=== PATIENT | male | born 1965 | race Caucasian/White ===

== ENCOUNTER 2017-07-26 05:11 | Emergency (ER) | payer MEDICAID, SELFPAY ==
[2017-07-26 05:15] VITALS: BP 155/108; PULSE 90; RESP 16; TEMP 36.8; O2SAT 97; BMI 25.8
--- NOTE | 2017-07-26 05:25 | XR_ITS ---
XR chest 2V INDICATION: Cough COMPARISON: PA and lateral chest 06/11/2015 FINDINGS: The cardiovascular structures are unremarkable. No mediastinal shift or hilar mass is evident. The lungs are well expanded and clear bilaterally. The costophrenic sulci are sharp. No significant bony anomalies are apparent. IMPRESSION: Negative chest.
[2017-07-26 06:02] VITALS: PULSE 90; PULSE 91
[2017-07-26 06:10] LABS: Basophils # 0.1 K/mm3 (0-0.2); Eosinophils # 0.9 K/mm3 (0.0-0.4); Lymphocytes % 27.4 K/mm3 (10-50); Mean Corpuscular HGB Conc 35.6 g/dL (31.8-35.4); Mean Corpuscular Hemoglobin 30.5 pg (27.0-31.2); Mean Corpuscular Volume 85.7 fl (80-94); Monocytes # 0.5 K/mm3 (0.1-1.0); Monocytes % 6.9 % (1.7-9.3); Neutrophils # 3.8 K/mm3 (1.8-7.8); Neutrophils % 52.7 % (37.0-80.0); Platelet Count 190 K/mm3 (142-424); Red Blood Count 5.25 M/mm3 (4.60-6.20); Red Cell Distribution Width 13.7 % (11.5-17.5); White Blood Count 7.1 K/mm3 (4.8-10.8)
[2017-07-26 06:12] VITALS: BP 132/87; PULSE 97; O2SAT 96
[2017-07-26 06:17] VITALS: BP 137/94; PULSE 80; RESP 16; O2SAT 98
[2017-07-26 06:18] LABS: Strep Scrn Group A (Rapid) Negative (Negative)
[2017-07-26 06:23] LABS: Lactic Acid 0.9 mmol/L (0.4-2.0)
[2017-07-26 06:29] LABS: Anion Gap 11.7 mEq/L (5-15); Blood Urea Nitrogen 15 mg/dL (7-18); CKMB Relative Index 0.8 U/L (0-4.0); Carbon Dioxide 29 mmol/L (21.0-32.0); Chloride 105 mmol/L (98-107); Creatine Kinase 502 U/L (39-308); Creatine Kinase MB 4.1 mg/ml (0.0-3.6); Creatinine Clearance Estimated 85 mL/min (0-300); Creatinine,Serum 1.14 mg/dL (0.70-1.30); Estimated Glomerular Filt Rate 68 ml/min (>60); GFR (African American) 82 ML/MIN (>60); Glucose 94 mg/dL (74-106); Potassium 3.7 mmoL/L (3.5-5.1); Sodium 142 mmol/L (136-145); Troponin I < 0.02 ng/ml (0.00-0.06)
[2017-07-26 06:30] VITALS: BP 127/98; PULSE 70
--- NOTE | 2017-07-26 06:55 | HMH.EDGENADL ---
ED Disposition Clinical Impression: Bronchospasm with bronchitis, acute Disposition: Home, Self-Care Condition on Discharge: Good Instructions: DI for Acute Bronchitis Additional Instructions: Use inhaler 2 puffs every 4 hours as needed for wheezing and shortness of breath. Tessalon Perles for cough. Prednisone for 5 days. Additional instructions for ACUTE BRONCHITIS: Use Tylenol or Ibuprofen for pain or fever. Rest and plenty of fluids. Return immediately if you have an uncontrollable fever greater than 102 degrees, severe headache or neck stiffness, difficulty breathing or shortness of breath, persistent vomiting, severe sore throat or inability to swallow. See your physician if not improving in 4-5 days. Prescriptions: Benzonatate [Tessalon Perle 100mg Cap] 100 mg PO TIDP PRN #20 cap PRN Reason: Cough predniSONE [Prednisone 20mg Tab] 20 mg PO BID #10 tab Referrals: Alice Salguero APRN [Primary Care Provider] - - Critical Care Critical Care Time: No Attestation: On 07/26/17, the high probability of a clinically significant, sudden or life threatening deterioration of the following system(s) required my full and direct attention, intervention and personal management. The time I documented below is in addition to time spent performing reported procedures but includes the following listed in this critical care notation. Medical Decision Making - [place] Inquiry Pt receiving controlled substance: No Vital Signs: 07/26/17 05:15 07/26/17 06:12 07/26/17 06:17 Temperature 98.3 F Temperature Source Temporal Artery Scan Pulse Rate [Right Radial] 90 97 H 80 Respiratory Rate 16 16 Blood Pressure [Right Arm] 155/108 132/87 137/94 Blood Pressure Mean [Right Arm] 123 102 108 Blood Pressure Source [Right Arm] Automatic Cuff Automatic Cuff Automatic Cuff Blood Pressure Position [Right Arm] Sitting Supine Sitting 02 Sat by Pulse Oximetry 97 96 98 Oxygen Delivery Method Room Air Room Air Room Air 07/26/17 06:30 Temperature Temperature Source Pulse Rate [Right Radial] 70 Respiratory Rate Blood Pressure [Right Arm] 127/98 Blood Pressure Mean [Right Arm] 107 Blood Pressure Source [Right Arm] Automatic Cuff Blood Pressure Position [Right Arm] Supine 02 Sat by Pulse Oximetry Oxygen Delivery Method - Lab Data Lab results reviewed: Yes: I reviewed the patient's lab results. Lab Results 07/26/17 05:30: WBC 7.1, RBC 5.25, Hgb 16.0, Hct 45.0, MCV 85.7, MCH 30.5, MCHC 35.6 H, RDW 13.7, Plt Count 190, MPV 8.0, Neut % (Auto) 52.7, Lymph % (Auto) 27.4, [place] % (Auto) 6.9, Eos % (Auto) 12.0, Baso % (Auto) 1.0, Neut # (Auto) 3.8, Lymph # (Auto) 2.0, [place] # (Auto) 0.5, Eos # (Auto) 0.9 H, Baso # (Auto) 0.1 07/26/17 05:30: Sodium 142, Potassium 3.7, Chloride 105, Carbon Dioxide 29, Anion Gap 11.7, BUN 15, Creatinine 1.14, Estimated Creat Clear 85, Estimated GFR 68, Est GFR ( Amer) 82, Glucose 94, Total Creatine Kinase 502 H*, CK-MB (CK-2) 4.1 H, CK-MB (CK-2) Rel Index 0.8, Troponin I < 0.02 07/26/17 05:30: Lactic Acid 0.9 07/26/17 05:30: Influenza Type A Ag Negative, Influenza Type B Ag Negative, Group A Strep Rapid Negative Total CPK elevated, patient has been chopping wood past couple of days. Result diagrams: 07/26/17 05:30 07/26/17 05:30 Orders (Tests/Meds): ED MEDICATIONS Discontinued Medications Generic Name Dose Route Start Last Admin Trade Name Freq PRN Reason Stop Dose Admin Albuterol/Ipratropium 3 ml 07/26/17 05:43 Duoneb 3ml Neb 07/26/17 05:44 ONCE ONE Albuterol/Ipratropium 2 puff 07/26/17 06:55 07/26/17 07:06 Combivent Respimat 20mcg/100mcg Inhaler 07/26/17 06:56 2 act ONCE ONE Administration Sodium Chloride 1,000 mls @ 999 mls/hr 07/26/17 05:45 07/26/17 05:39 Sod Chlor 0.9% 1000ml Bag IV 07/26/17 06:45 999 mls/hr .Q1H1M LEAH Administration Methylprednisolone Sodium Succinate 125 mg 07/26/17 06:55 07/26/17 07:06 Tasha
--- NOTE | 2017-07-26 06:58 | ED_ITS ---
ED Disposition Clinical Impression: Bronchospasm with bronchitis, acute Disposition: Home, Self-Care Condition on Discharge: Good Instructions: DI for Acute Bronchitis Additional Instructions: Use inhaler 2 puffs every 4 hours as needed for wheezing and shortness of breath. Tessalon Perles for cough. Prednisone for 5 days. Additional instructions for ACUTE BRONCHITIS: Use Tylenol or Ibuprofen for pain or fever. Rest and plenty of fluids. Return immediately if you have an uncontrollable fever greater than 102 degrees, severe headache or neck stiffness, difficulty breathing or shortness of breath, persistent vomiting, severe sore throat or inability to swallow. See your physician if not improving in 4-5 days. Prescriptions: Benzonatate [Tessalon Perle 100mg Cap] 100 mg PO TIDP PRN #20 cap PRN Reason: Cough predniSONE [Prednisone 20mg Tab] 20 mg PO BID #10 tab Referrals: Alice Salguero APRN [Primary Care Provider] - - Critical Care Critical Care Time: No Attestation: On 07/26/17, the high probability of a clinically significant, sudden or life threatening deterioration of the following system(s) required my full and direct attention, intervention and personal management. The time I documented below is in addition to time spent performing reported procedures but includes the following listed in this critical care notation. Medical Decision Making - [place] Inquiry Pt receiving controlled substance: No Vital Signs: 07/26/17 05:15 07/26/17 06:12 07/26/17 06:17 Temperature 98.3 F Temperature Source Temporal Artery Scan Pulse Rate [Right Radial] 90 97 H 80 Respiratory Rate 16 16 Blood Pressure [Right Arm] 155/108 132/87 137/94 Blood Pressure Mean [Right Arm] 123 102 108 Blood Pressure Source [Right Arm] Automatic Cuff Automatic Cuff Automatic Cuff Blood Pressure Position [Right Arm] Sitting Supine Sitting 02 Sat by Pulse Oximetry 97 96 98 Oxygen Delivery Method Room Air Room Air Room Air 07/26/17 06:30 Temperature Temperature Source Pulse Rate [Right Radial] 70 Respiratory Rate Blood Pressure [Right Arm] 127/98 Blood Pressure Mean [Right Arm] 107 Blood Pressure Source [Right Arm] Automatic Cuff Blood Pressure Position [Right Arm] Supine 02 Sat by Pulse Oximetry Oxygen Delivery Method - Lab Data Lab results reviewed: Yes: I reviewed the patient's lab results. Lab Results 07/26/17 05:30: WBC 7.1, RBC 5.25, Hgb 16.0, Hct 45.0, MCV 85.7, MCH 30.5, MCHC 35.6 H, RDW 13.7, Plt Count 190, MPV 8.0, Neut % (Auto) 52.7, Lymph % (Auto) 27.4, [place] % (Auto) 6.9, Eos % (Auto) 12.0, Baso % (Auto) 1.0, Neut # (Auto) 3.8 , Lymph # (Auto) 2.0, [place] # (Auto) 0.5, Eos # (Auto) 0.9 H, Baso # (Auto) 0.1 07/26/17 05:30: Sodium 142, Potassium 3.7, Chloride 105, Carbon Dioxide 29, Anion Gap 11.7, BUN 15, Creatinine 1.14, Estimated Creat Clear 85, Estimated GFR 68, Est GFR ( Amer) 82, Glucose 94, Total Creatine Kinase 502 H*, CK- MB (CK-2) 4.1 H, CK-MB (CK-2) Rel Index 0.8, Troponin I < 0.02 07/26/17 05:30: Lactic Acid 0.9 07/26/17 05:30: Influenza Type A Ag Negative, Influenza Type B Ag Negative, Group A Strep Rapid Negative Total CPK elevated, patient has been chopping wood past couple of days. Result diagrams: 07/26/17 05:30 07/26/17 05:30 Orders (Tests/Meds): ED MEDICATIONS Discontinued Medications
[2017-07-26 07:18] VITALS: BP 128/90; PULSE 88; RESP 16; TEMP 37; O2SAT 99
== END 2017-07-26 07:23 | disposition home or self-care (01) ==
PROVIDERS: Emergency Provider Emergency Medicine; Family Provider Nurse Practitioner Family; PCP Nurse Practitioner Family
DX: J20.9 Acute bronchitis, unspecified (principal); I10 Essential (primary) hypertension; Z88.0 Allergy status to penicillin
CPT/HCPCS: 71046; 80048; 82550; 82553; 83605; 84484; 85025; 87040; 87275; 87276; 87430; 93005; 96365; 96374; 99284

== ENCOUNTER → 2018-05-29 13:22 | Outpatient (CLI) | payer MEDICAID, SELFPAY ==
--- NOTE | 2018-05-29 13:32 | XR_ITS ---
XR chest 2V HISTORY: ITS.REASON: CHRONIC COUGH ORDERING PHYSICIAN: Alice Salguero PATIENT AGE: 52 years COMPARISON: PA and lateral chest 07/26/2017 FINDINGS: The cardiomediastinal silhouette and pulmonary vascularity are within normal limits. There are slightly increased bronchovascular markings in the lingula causing partial silhouetting of the left heart border. The remainder lung flower are clear. There is no pleural fluid. IMPRESSION: Findings suggesting a very minimal lingular pneumonia
== END ==
PROVIDERS: PCP Nurse Practitioner Family; Visit Provider Nurse Practitioner Family
DX: R05 Cough (principal)
CPT/HCPCS: 71046

== ENCOUNTER → 2018-06-21 13:35 | Outpatient (CLI) | payer MEDICAID, SELFPAY ==
--- NOTE | 2018-06-21 13:40 | XR_ITS ---
XR chest 2V HISTORY: ITS.REASON: BRONCHOPNEUMONIA ORDERING PHYSICIAN: Alice Salguero PATIENT AGE: 52 years COMPARISON: None FINDINGS: The cardiomediastinal silhouette and pulmonary vascularity are within normal limits. The lungs are clear without infiltrates, suspicious nodules, or pleural effusions. No acute bony abnormalities. IMPRESSION: Negative chest, no acute finding
== END ==
PROVIDERS: PCP Nurse Practitioner Family; Visit Provider Nurse Practitioner Family
DX: J18.0 Bronchopneumonia, unspecified organism (principal)
CPT/HCPCS: 71046

== ENCOUNTER → 2019-03-01 12:12 | Outpatient (CLI) | payer MEDICAID, SELFPAY ==
--- NOTE | 2019-03-01 12:26 | XR_ITS ---
PROCEDURE: XR THORACIC SPINE 3V CLINICAL INDICATION: THORACIC SPINE PAIN Pain between the shoulder blades COMPARISON: No exams were available for comparison FINDINGS: Minimal midthoracic curvature convex left. There is degenerative disc disease at C5-C6 and C6-C7. The thoracic spine has an otherwise unremarkable appearance. No fracture or dislocation. No lytic or blastic change. IMPRESSION: 1. Minimal degenerative disc disease C5-C6 and C6-C7. 2. Minimal midthoracic curvature convex left otherwise negative thoracic spine Dictated by: Jermey Julio MD 03/01/2019 17:14 Electronically signed by Jeremy Julio MD in [place] 03/01/2019 17:14
== END ==
PROVIDERS: PCP Nurse Practitioner; Visit Provider Nurse Practitioner
DX: M54.6 Pain in thoracic spine (principal)
CPT/HCPCS: 72072

== ENCOUNTER → 2019-05-25 13:38 | Outpatient (CLI) | payer MEDICAID, SELFPAY ==
--- NOTE | 2019-05-25 13:42 | XR_ITS ---
PROCEDURE: XR ACUTE ABDOMEN SERIES CLINICAL INDICATION: ABD PAIN COMPARISON: No exams were available for comparison FINDINGS: Frontal view the chest shows no acute finding. Upright and supine views of the abdomen are obtained. No intestinal obstruction or free air. There are multiple pelvic calcifications consistent with phleboliths. No acute bony anomalies. IMPRESSION: No acute findings. Dictated by: Jeremy Julio MD 05/25/2019 17:49 Electronically signed by Jeremy Julio MD in [place] 05/25/2019 17:49
== END ==
PROVIDERS: PCP Nurse Practitioner; Visit Provider Nurse Practitioner
DX: R10.84 Generalized abdominal pain (principal)
CPT/HCPCS: 74021

== ENCOUNTER → 2019-07-05 10:24 | Outpatient (CLI) | payer MEDICAID, SELFPAY ==
[2019-07-05 11:37] LABS: Blood Urea Nitrogen 11 mg/dl (9-20); Estimated Glomerular Filt Rate 64 ml/min (>60); GFR (African American) 77 ML/MIN (>60)
== END ==
PROVIDERS: Visit Provider Surgery
DX: Z01.818 Encounter for other preprocedural examination (principal)
CPT/HCPCS: 36415; 82565; 84520

== ENCOUNTER → 2019-07-12 09:21 | Outpatient (CLI) | payer MEDICAID, SELFPAY ==
--- NOTE | 2019-07-12 09:21 | CT_ITS ---
PROCEDURE: CT ABDOMEN PELVIS W CON CLINICAL INDICATION: diverticulitis Diverticulitis, abdominal pain and tenderness COMPARISON: No exams were available for comparison TECHNIQUE: IV Contrast: 75ML OPTIRAY 350 Oral Contrast Readi-Cat Axial images obtained with sagittal and coronal reformats. All CT scans at the facility use one or more dose reduction, viz: automated exposure control, ma/kV adjustment per patient size (including targeted exams where dose is matched to indication, i.e. head), or iterative reconstruction technique. FINDINGS: LOWER THORAX: No acute finding ABDOMEN & PELVIS: The liver, gallbladder, spleen, adrenal glands, and pancreas have an unremarkable appearance. No renal or ureteral calculi. No hydronephrosis. There has been a prior appendectomy. No intestinal obstruction or free air is evident. There is diverticulosis of the descending and sigmoid colon. No evidence of acute diverticulitis. There is mild thickening of the sigmoid colon which may be related to underlying muscular hypertrophy from the diverticulosis. No abscess or other significant anomaly evident. No acute bony anomalies. IMPRESSION: 1. Colonic diverticulosis. No evidence of acute diverticulitis. 2. Otherwise negative CT abdomen pelvis Dictated by: Jeremy Julio MD 07/13/2019 10:38 Electronically signed by Jeremy Julio MD in [place] 07/13/2019 10:38
== END ==
PROVIDERS: PCP Nurse Practitioner; Visit Provider Surgery
DX: K57.92 Diverticulitis of intestine, part unspecified, without perforation or abscess without bleeding (principal)
CPT/HCPCS: 74177; Q9967

== ENCOUNTER → 2020-01-14 18:25 | Outpatient (CLI) | payer MEDICAID, SELFPAY ==
[2020-01-16 15:43] LABS: Covid-19 Nasal PCR Sendout UK NOT DETECTED
== END ==
PROVIDERS: PCP Nurse Practitioner; Visit Provider Nurse Practitioner
DX: Z03.818 Encounter for observation for suspected exposure to other biological agents ruled out (principal)
CPT/HCPCS: U0003

== ENCOUNTER → 2020-02-03 09:04 | Outpatient (CLI) | payer MEDICAID, SELFPAY ==
[2020-02-03 18:17] LABS: Thyroid Stimulating Hormone 2.96 uIU/mL (0.465-4.68)
== END ==
PROVIDERS: Visit Provider Otolaryngology
DX: E01.0 Iodine-deficiency related diffuse (endemic) goiter (principal)
CPT/HCPCS: 36415; 84439; 84443

== ENCOUNTER → 2020-06-04 13:29 | Outpatient (CLI) | payer MEDICAID, SELFPAY ==
[2020-06-04 15:13] LABS: Basophils # 0.1 K/mm3 (0-0.2); Eosinophils # 0.6 K/mm3 (0.0-0.4); Eosinophils % 5.5 % (0.1-12.0); Hematocrit 52.3 % (42.0-52.0); Lymphocytes # 2.8 K/mm3 (0.7-4.5); Lymphocytes % 25.5 % (10-50); Mean Corpuscular HGB Conc 35.6 g/dL (31.8-35.4); Mean Corpuscular Hemoglobin 31.6 pg (27.0-31.2); Mean Corpuscular Volume 88.7 fl (80-94); Monocytes # 0.6 K/mm3 (0.1-1.0); Monocytes % 5.4 % (1.7-9.3); Neutrophils # 6.8 K/mm3 (1.8-7.8); Neutrophils % 62.5 % (37.0-80.0); Platelet Count 217 K/mm3 (142-424); Red Cell Distribution Width 14.1 % (11.5-17.5); White Blood Count 10.8 K/mm3 (4.8-10.8)
[2020-06-04 15:27] LABS: Hemoglobin 18.8 g/dL (14.1-18.0)
[2020-06-04 15:50] LABS: Chloride 101 mmol/L (98-107); Sodium 140 mmol/L (136-145)
[2020-06-04 15:52] LABS: Alanine Aminotransferase 35 U/L (12-78); Aspartate Amino Transferase 30 U/L (17-59); Blood Urea Nitrogen 12 mg/dl (9-20); Estimated Glomerular Filt Rate 70 ml/min (>60); GFR (African American) 85 ML/MIN (>60)
[2020-06-04 15:53] LABS: Albumin Level 5.4 g/dl (3.5-5.0); Albumin/Globulin Ratio 1.4 (1.1-1.8); Alkaline Phosphatase 69 U/L (38-126); Bilirubin,Total 0.7 mg/dl (0.2-1.3); Calcium 10.2 mg/dl (8.4-10.2); Carbon Dioxide 28 mmol/L (22.0-30.0); Chol/HDL Ratio 4.7 (1-3.5); Cholesterol 192 mg/dl (140-200); Globulin 3.8 g/dL (1.3-3.2); Glucose 100 mg/dl (74-100); HDL Cholesterol 41 mg/dl (40-60); Total Protein,Serum 9.2 g/dl (6.3-8.2); Triglycerides 351 mg/dl (30-150); VLDL Cholesterol 70 mg/dL (0-40)
[2020-06-04 16:05] LABS: Direct LDL Cholesterol 91.63 mg/dL (100-129)
[2020-06-04 20:20] LABS: Amphetamine/Metha Screen,Urine Negative ng/ml (<1000)
[2020-06-04 20:21] LABS: Barbiturates Screen,Urine Negative ng/ml (<200)
[2020-06-04 20:22] LABS: Benzodiazepines Screen,Urine Negative ng/ml (<200); Cannabinoid Screen,Urine Negative ng/ml (<50)
[2020-06-04 20:23] LABS: Cocaine Screen,Urine Negative ng/ml (<300)
[2020-06-04 20:24] LABS: Methadone Screen,Urine Negative ng/ml (<300); Opiate Screen,Urine Negative ng/ml (<300)
[2020-06-04 20:25] LABS: Phencyclidine Screen,Urine Negative ng/ml (<25)
== END ==
PROVIDERS: Visit Provider Emergency Medicine
DX: R53.83 Other fatigue (principal); Z79.899 Other long term (current) drug therapy
CPT/HCPCS: 80053; 80061; 80305; 85025

== ENCOUNTER → 2020-07-02 13:51 | Outpatient (CLI) | payer MEDICAID, SELFPAY ==
[2020-07-02 16:11] LABS: Amphetamine/Metha Screen,Urine Negative ng/ml (<1000)
[2020-07-02 16:12] LABS: Barbiturates Screen,Urine Negative ng/ml (<200)
[2020-07-02 16:13] LABS: Benzodiazepines Screen,Urine Negative ng/ml (<200)
[2020-07-02 16:14] LABS: Cannabinoid Screen,Urine Negative ng/ml (<50)
[2020-07-02 16:15] LABS: Cocaine Screen,Urine Negative ng/ml (<300)
[2020-07-02 16:16] LABS: Methadone Screen,Urine Negative ng/ml (<300); Opiate Screen,Urine Negative ng/ml (<300)
[2020-07-02 16:17] LABS: Phencyclidine Screen,Urine Negative ng/ml (<25)
== END ==
PROVIDERS: Emergency Medicine; Visit Provider Surgery
DX: Z79.899 Other long term (current) drug therapy (principal)
CPT/HCPCS: 80305

== ENCOUNTER → 2020-07-16 10:54 | Outpatient (CLI) | payer MEDICAID, SELFPAY ==
[2020-07-16 12:54] LABS: Coronavirus 19 IgG Antibody Negative (Negative); Coronavirus 19 IgM Antibody Negative (Negative)
== END ==
PROVIDERS: Visit Provider Surgery
DX: Z01.812 Encounter for preprocedural laboratory examination (principal)
CPT/HCPCS: 36415; 86328

== ENCOUNTER 2020-07-18 07:20 | Day surgery (SDC) | payer MEDICAID, SELFPAY ==
[2020-07-18 07:34] VITALS: BP 131/83; PULSE 78; RESP 18; TEMP 36.1; O2SAT 97; BMI 25.8
[2020-07-18 08:31] VITALS: O2SAT 97
--- NOTE | 2020-07-18 08:38 | HMH.ANESCL ---
[facility] Anesthesia Checklist - Patient Identification Patient Identification: Arm Band - Structural Data Admitted From: Home Planned Operative Procedure/s: colonoscopy Consent for Planned Operative Procedure(s) Verified: Yes Verified Documents: Surgical Consent, History and Physical - NPO Status Verified Time NPO: 00:00 - Additional verifications Anesthesia Reactions: No - Airway Assessment C-Spine Mobility Assessed: Yes (mp2) TMJ Mobility Assessed: Yes Dentition: Poor Dentition - Neurological Assessment Level of Consciousness: Awake, Alert - Anesthesia Plan Anesthesia Risk discussed: Yes Anesthesia Plan: Verified ASA Class: II Anesthesia Type: [facility] History I have reviewed the patient's past medical history: Yes Medical History: Reports:: Anxiety, Asthma, Hyperlipidemia, Hypertension Denies:: Cancer, Diabetes Mellitus Type 1, Diabetes Mellitus Type 2, Internal Pacemaker, MRSA, Seizures *Have you ever received a pneumonia vaccine?: No *Have you received a flu vaccine this season?: No Other Medical History: Reports: Thyroid Disease Anesthesia experience/problems:: nac Other Surgeries: Yes: Appendectomy, Colonoscopy, Other. No: Pacemaker Amputation: No Fractures: No - *Social History Smoking Status: Heavy tobacco smoker Tobacco Type: smokeless tobacco # Packs/Day (cigarettes): 1 Alcohol Intake: never Substance Use Type: denies use *Occupational Status:: employed Housing: house Household Members: significant other *Travel in the last 8 weeks: None - Psychiatric History Pschychiatric History:: Reports:: Anxiety Family Hx:: No significant family history
[2020-07-18 09:01] VITALS: BP 71/51; PULSE 67; RESP 16; TEMP 36.2; O2SAT 94
--- NOTE | 2020-07-18 09:02 | HMH.SCOPE ---
- Procedure: Date: 07/18/20 Patient Date of :: 1965 Procedure Performed:: Total colonoscopy to terminal ileum Indications:: Patient is a 54-year-old white male from [place] referred by Dr. Estevez for colonoscopy. I had performed colonoscopy on him in October 2016 and he had diverticulosis and a small sigmoid tubular adenoma. I had actually seen him in June 2019 as a referral from Hayley Eugene for diverticulitis . At that time the patient had developed some postprandial bloating and lower abdominal pain after eating [place] sprouts and boiled cabbage. I had planned for CT scan and potentially colonoscopy at that time. He is now referred by Dr. Estevez for follow-up colonoscopy due to previous history of polyps. Patient does state that he takes Metamucil and MiraLAX. He has been reluctant to proceed with colonoscopy due to some side effects from the anesthesia with previous colonoscopy at which time he had fentanyl and Versed. Performing Provider:: Jason Villegas MD Referring Provider:: Angel Estevez MD Sedation:: Propofol Procedure:: Patient was taken to endoscopy procedure room. He was positioned in a lateral decubitus position. Adequate intravenous sedation was achieved with anesthesia titration of propofol. Digital examination was performed which revealed asymmetric prominence of the left lobe of the prostate. No firm masses. Variable stiffness Olympus colonoscope was inserted via the anus. Was advanced to the cecum. Ileocecal valve and appendiceal orifice were clearly identified. Colonoscope was advanced a short distance into the terminal ileum which appeared grossly normal. Colonoscope was withdrawn through the colon with careful surveillance. He had some degree of pandiverticulosis which was more prominent in the sigmoid colon. Retroflexion within the rectum revealed no evidence of any pathologic internal hemorrhoids. Colonoscope was withdrawn. Findings:: Diverticulosis Asymmetric enlargement of the left lobe of the prostate Recommendations:: Likely repeat colonoscopy 5 to 10 years. Favor 5 years given previous history of adenomatous polyp 3 years ago. May require urology evaluation for prostate. Complications:: None immediately apparent Estimated blood obtained (mL): 0
[2020-07-18 09:11] VITALS: BP 109/79; PULSE 67; RESP 18; TEMP 36.2; O2SAT 97
[2020-07-18 09:21] VITALS: BP 124/43; PULSE 56; RESP 18; TEMP 36.2; O2SAT 96
[2020-07-18 09:31] VITALS: BP 138/70; PULSE 55; RESP 18; TEMP 36.2; O2SAT 96
== END 2020-07-18 09:31 | disposition home or self-care (01) ==
LOC: OUTP 07:21
PROVIDERS: PCP Emergency Medicine; Visit Provider Surgery
PROC: 0DJD8ZZ Inspection of Lower Intestinal Tract, Via Natural or Artificial Opening Endoscopic (ICD-10-PCS; CPT G0121; principal; 2020-07-18 08:30)
DX: Z12.11 Encounter for screening for malignant neoplasm of colon (principal); Z86.010 Personal history of colon polyps; I10 Essential (primary) hypertension; E78.5 Hyperlipidemia, unspecified; F41.9 Anxiety disorder, unspecified; E07.9 Disorder of thyroid, unspecified; K57.30 Diverticulosis of large intestine without perforation or abscess without bleeding; N40.0 Benign prostatic hyperplasia without lower urinary tract symptoms; Z79.899 Other long term (current) drug therapy; Z88.0 Allergy status to penicillin
CPT/HCPCS: G0121

== ENCOUNTER → 2020-07-24 10:08 | Outpatient (CLI) | payer MEDICAID, SELFPAY | PROVIDERS: Visit Provider Urology | DX: Z12.5 Encounter for screening for malignant neoplasm of prostate (principal) | CPT/HCPCS: 36415; G0103 ==

== ENCOUNTER → 2020-09-26 10:42 | Outpatient (CLI) | payer MEDICAID, SELFPAY ==
--- NOTE | 2020-09-26 10:46 | XR_ITS ---
PROCEDURE: XR CHEST 2V CLINICAL HISTORY: shortness of breath COMPARISON: CR CXR2V XR chest 2V from 07/26/2017 CR CXR2V XR chest 2V from 05/29/2018 CR CXR2V XR chest 2V from 06/21/2018 FINDINGS: The cardiomediastinal silhouette and pulmonary vascularity are within normal limits. The lungs are clear without infiltrates, suspicious nodules, or pleural effusions. No acute bony abnormalities. IMPRESSION: No acute findings. Dictated by: Jeremy Julio MD 09/26/2020 12:11 Jeremy Julio MD in [place] 09/26/2020 12:11
== END ==
PROVIDERS: PCP Emergency Medicine; Visit Provider Emergency Medicine
DX: R06.02 Shortness of breath (principal)
CPT/HCPCS: 71046

== ENCOUNTER → 2020-10-18 13:30 | Outpatient (CLI) | payer MEDICAID, SELFPAY ==
--- NOTE | 2020-10-18 13:30 | MR_ITS ---
PROCEDURE: MR CERVICAL SPINE WO CON CLINICAL INDICATION: neck pain Worsening neck pain COMPARISON: No exams were available for comparison TECHNIQUE: Standard multiplanar multiecho sequences are performed without contrast. 3-D MIP and myelographic images are also rendered and reviewed FINDINGS: Normal alignment. Craniocervical junction has an unremarkable appearance. C2-C3: Unremarkable. C3-C4: Unremarkable. C4-C5: Unremarkable. C5-C6: Mild degenerative disc disease with minimal bulging disc. 2 mm retrolisthesis of C5. Mild bilateral foraminal narrowing from uncovertebral hypertrophy. C6-C7: Mild degenerative disc disease with bulging disc along with uncovertebral hypertrophy with moderate bilateral foraminal narrowing. C7-T1: Unremarkable. IMPRESSION: 1. C5-C6: Mild degenerative disc disease with minimal bulging disc. 2 mm retrolisthesis of C5. Mild bilateral foraminal narrowing from uncovertebral hypertrophy. 2. C6-C7: Mild degenerative disc disease with bulging disc along with uncovertebral hypertrophy with moderate bilateral foraminal narrowing. 3. No extruded herniated disc or canal stenosis. Dictated by: Jeremy Julio MD 10/18/2020 14:56 Jeremy Julio MD in [place] 10/18/2020 14:56
--- NOTE | 2020-10-18 13:30 | MR_ITS ---
PROCEDURE: MR LUMBAR SPINE WO CON CLINICAL INDICATION: back pain Bilateral low back pain COMPARISON: No exams were available for comparison TECHNIQUE: Standard multiplanar multiecho sequences are performed without contrast. 3-D MIP and myelographic images are also rendered and reviewed FINDINGS: There is normal alignment. The spinal cord ends at T12-L1 level. L1-L2: Unremarkable. L2-L3: Unremarkable. L3-L4: 2 mm anterolisthesis of L3 with minimal bulging disc along with mild facet and ligamentum hypertrophic change with minimal bilateral lateral recess narrowing. L4-5: Mild degenerative disc disease with minimal bulging disc. L5-S1: Mild degenerative disc disease No extruded herniated disc or bony canal stenosis. IMPRESSION: Minimal degenerative changes. No acute finding. No extruded herniated disc or canal stenosis. Dictated by: Jeremy Julio MD 10/18/2020 14:51 Jeremy Julio MD in [place] 10/18/2020 14:51
== END ==
PROVIDERS: PCP Emergency Medicine; Visit Provider Emergency Medicine
DX: M54.2 Cervicalgia (principal); M54.9 Dorsalgia, unspecified
CPT/HCPCS: 72141; 72148; 76376

== ENCOUNTER 2020-11-04 11:05 | Emergency (ER) | payer MEDICAID, SELFPAY ==
--- NOTE | 2020-11-04 11:04 | ECG_ITS ---
APPROVED REPORT Exam: Resting ECG HR:72 bpm ECG Measurements Heart Rate 72 AXES [place] 144 P 22 QRSd 86 QRS 53 QT 346 T 13 QTc 378 Conclusion Normal sinus rhythm Normal ECG Electronically signed by : Azam Valente, 11/05/2020 17:32:44
[2020-11-04 11:05] VITALS: BP 126/98; PULSE 79; RESP 17; TEMP 36.4; O2SAT 98; BMI 26.1
--- NOTE | 2020-11-04 11:06 | HMH.EDGENADL ---
ED Disposition Clinical Impression: Atypical chest pain Disposition: Home, Self-Care Condition on Discharge: Good Instructions: DI for Atypical Chest Pain Additional Instructions: Additional instructions for CHEST PAIN: See your physician as soon as possible for further evaluation. Return immediately if worsening chest pain, vomiting, shortness of breath, fever, coughing of blood. Referrals: Provider,Referral, [Referring] - - Critical Care Critical Care Time: No Attestation: On , the high probability of a clinically significant, sudden or life threatening deterioration of the following system(s) required my full and direct attention, intervention and personal management. The time I documented below is in addition to time spent performing reported procedures but includes the following listed in this critical care notation. Medical Decision Making - [place] Inquiry Pt receiving controlled substance: No Vital Signs: 11/04/20 11:05 Temperature 97.6 F Temperature Source Oral Pulse Rate [Right] 79 Respiratory Rate 17 Blood Pressure [Right Arm] 126/98 H Blood Pressure Mean [Right Arm] 107 02 Sat by Pulse Oximetry 98 Oxygen Delivery Method Room Air - Lab Data Lab Results 11/04/20 11:08: WBC 8.9, RBC 5.73, Hgb 17.0, Hct 48.1, MCV 83.9, MCH 29.7, MCHC 35.4, RDW 13.8, Plt Count 178, MPV 8.2, Neut % (Auto) 53.8, Lymph % (Auto) 27.8, [place] % (Auto) 5.3, Eos % (Auto) 12.2 H, Baso % (Auto) 0.9, Neut # (Auto) 4.8, Lymph # (Auto) 2.5, [place] # (Auto) 0.5, Eos # (Auto) 1.1 H, Baso # (Auto) 0.1 11/04/20 11:08: Sodium 139, Potassium 4.0, Chloride 104, Carbon Dioxide 27, Anion Gap 12.0, BUN 8 L, Creatinine 1.00, Estimated Creat Clear 88, Estimated GFR 78, Est GFR ( Amer) 94, Glucose 102 H, Calcium 9.1, Troponin I < 0.01 Result diagrams: 11/04/20 11:08 11/04/20 11:08 Orders (Tests/Meds): ORDERS Category Date Time Status XR chest portable Stat Exams 11/04/20 11:17 Taken Troponin I Q3H Lab 11/04/20 14:30 Ordered Troponin I Q3H Lab 11/04/20 17:30 Ordered - Radiology Data #1 Image(s): Chest Image Reviewed: Yes I reviewed the patient's radiology image Preliminary Findings: Normal/NAD - ECG Data Tracing #1 EKG interpreted by Mingo De La Cruz MD: Rhythm: sinus Rate: 72 [place]: normal Ectopy: none Conduction: normal ST Segment Changes: none T Wave Changes: none Q Waves: none No evidence of acute ischemia or injury Normal electrocardiogram - Reevaluation(s) Time: 11:52 Reevaluation #1: Remains asymptomatic. - WILL Score for Non-Stemi Age of Patient: 50-59 years old Heart Rate: 70-89 bpm Systolic Blood Pressure: 120-139 mmhg Serum Creatinine: 0.80-1.19 mg/dl CHF [place] Class: I-No CHF Other Risk Factors: None Non-Stemi Risk Score: 91 Medical Decision Narrative: Heart Pathway Score is: 2 Low Risk Given that symptoms were 6 hours ago, symptoms have not recurred, and troponin is normal, I do not feel a second troponin needs to be performed. General Adult HPI - General Stated complaint: chest pain Time Seen by Provider: 11/04/20 11:10 - History of Present Illness HPI narrative: 1 hour episode of a burning sensation from his right ear and down the right side of his neck to the right side of his sternum. Symptoms started at 5 AM. No associated nausea, diaphoresis, or shortness of breath. He was a little chilled which he says he gets when he has anxiety. He took [place], Klonopin, and a drink of a carbonated beverage. Symptoms have not returned since resolution. He says he called his primary care provider was advised to continue his GERD medications and follow-up as an outpatient. He said he told them he wanted some assurance that he did not have a heart attack so they advised him to come to the emergency department to get blood work and an EKG. He has a history of GERD. He says if he goes to bed too soon after eating he will wake up with heartburn. He
--- NOTE | 2020-11-04 11:17 | XR_ITS ---
PROCEDURE INFORMATION: Exam: XR Chest Exam date and time: 11/04/2020 11:17 AM Age: 55 years old Clinical indication: Pain; Right-sided; Additional info: Chest pain prior to arrival TECHNIQUE: Imaging protocol: XR of the chest. Views: 1 view. COMPARISON: CR XR CHEST 2V 09/26/2020 10:53 AM FINDINGS: Lungs: Unremarkable. No consolidation. Pleural spaces: Unremarkable. No pleural effusion. No pneumothorax. Heart/Mediastinum: Unremarkable. No cardiomegaly. Bones/joints: Unremarkable. IMPRESSION: No acute findings.
[2020-11-04 11:26] LABS: Basophils # 0.1 K/mm3 (0-0.2); Basophils % 0.9 % (0.1-2.0); Eosinophils # 1.1 K/mm3 (0.0-0.4); Eosinophils % 12.2 % (0.1-12.0); Hematocrit 48.1 % (42.0-52.0); Lymphocytes # 2.5 K/mm3 (0.7-4.5); Lymphocytes % 27.8 % (10-50); Mean Corpuscular HGB Conc 35.4 g/dL (31.8-35.4); Mean Corpuscular Hemoglobin 29.7 pg (27.0-31.2); Mean Corpuscular Volume 83.9 fl (80-94); Mean Platelet Volume 8.2 fl (7.4-10.4); Monocytes # 0.5 K/mm3 (0.1-1.0); Monocytes % 5.3 % (1.7-9.3); Neutrophils # 4.8 K/mm3 (1.8-7.8); Neutrophils % 53.8 % (37.0-80.0); Platelet Count 178 K/mm3 (142-424); Red Blood Count 5.73 M/mm3 (4.60-6.20); Red Cell Distribution Width 13.8 % (11.5-17.5); White Blood Count 8.9 K/mm3 (4.8-10.8)
[2020-11-04 11:31] LABS: Blood Urea Nitrogen 8 mg/dl (9-20); Calcium 9.1 mg/dl (8.4-10.2); Carbon Dioxide 27 mmol/L (22.0-30.0); Chloride 104 mmol/L (98-107); Creatinine Clearance Estimated 88 mL/min (50-200); Estimated Glomerular Filt Rate 78 ml/min (>60); GFR (African American) 94 ML/MIN (>60); Glucose 102 mg/dl (74-100); Sodium 139 mmol/L (136-145)
[2020-11-04 11:44] LABS: Troponin I < 0.01 ng/ml (0.00-0.034)
[2020-11-04 11:50] VITALS: BP 128/82; PULSE 73; RESP 16; TEMP 36.7; O2SAT 98
[2020-11-04 11:53] VITALS: BP 128/82; PULSE 75; RESP 18; O2SAT 97
== END 2020-11-04 12:01 | disposition home or self-care (01) ==
PROVIDERS: Emergency Provider Emergency Medicine; PCP Emergency Medicine
DX: R07.89 Other chest pain (principal); K21.9 Gastro-esophageal reflux disease without esophagitis; E78.5 Hyperlipidemia, unspecified; I10 Essential (primary) hypertension; F17.210 Nicotine dependence, cigarettes, uncomplicated; Z79.899 Other long term (current) drug therapy
CPT/HCPCS: 71045; 80048; 84484; 85025; 93005; 99282

== ENCOUNTER → 2020-11-08 09:16 | Outpatient (POV) | payer MEDICAID, SELFPAY ==
[2020-11-08 09:58] VITALS: BP 137/106; PULSE 77; RESP 18; O2SAT 97; BMI 27.1
--- NOTE | 2020-11-08 10:40 | HMH.PMCON ---
Assessment and Plan (1) Degenerative joint disease (DJD) of lumbar spine Status: Acute Category: Medical Code(s): M47.816 - Spondylosis without myelopathy or radiculopathy, lumbar region (2) Lumbar radiculopathy Status: Acute Category: Medical Code(s): M54.16 - Radiculopathy, lumbar region (3) Bilateral sacroiliitis Status: Acute Category: Medical Code(s): M46.1 - Sacroiliitis, not elsewhere classified - Assessment and plan all Dx Assessment and Plan for all problems:: Patient is positive for Kimi's, compression, distraction test bilaterally. He does have tenderness noted to his bilateral SI joints today. We discussed undergoing injective therapy. He has not had injections. We will schedule him for bilateral SI joint injections. We will also schedule him a another round of physical therapy. Patient does report a history of anxiety and does take Klonopin for his anxiety. He says that he does get nervous undergoing injective therapy. We discussed in detail the injections today. This has eased his anxiety somewhat. If the patient does not get relief with the SI injections. He and I also had a long conversation of injective therapy such as a lumbar epidural steroid injection. We will see the patient back in the clinic after his bilateral SI injections to reevaluate his symptoms. Possible side effects of corticosteroids have been discussed with the patient. Risks and benefits of the procedure have been explained to the patient. Patient would like to proceed with the procedure. Patient has been instructed to contact the clinic with any concerns before the next appointment. Dr. Riddle has reviewed this note and agrees with this plan of care. This note was dictated using voice recognition software and make contain errors or omissions. HPI - Data of Consult Patient: new to practice Consult date: 11/08/20 Requesting Physician: Hayley Pineda APRN Primary Care Provider: Mark Estevez MD - Consult Narrative Reason for consult: Back pain, neck pain History of present illness: Mr. Mcclain is a 55 year old male who presents today for consultation for chronic low back pain. Patient says he has had pain in his low back for greater than 5 years. He also has occasional neck pain. His pain is worse today, however, to his low back area. He reports to be having bilateral leg pain as well. He has tried chiropractic therapy with no significant relief. He has also tried ibuprofen 800 mg for years. He did has not gotten relief. He rates his pain a 3 out of 10 at this time. He says that he has seen Dr. Estevez for his pain who encouraged the patient to undergo imaging of his cervical and lumbar spine. Patient says that when he is walking and standing for prolonged periods he has worse pain. He says he is also unable to sit for more than 5 to 10 minutes without having to reposition. Patient says his pain is also traveling into his bilateral buttock and groin. Patient has not undergone any type of injective therapy. He has had physical therapy in the past but no significant relief. I have encouraged the patient to return to physical therapy. He will try physical therapy. He has had physical therapy for more than 6 weeks previously. He says his does have a TENS unit which she has tried applying to his low back area which is giving him short-term relief. He continues with home stretching and ice and heat therapies. CC: Hayley Pineda APRN [facility] History I have reviewed the patient's past medical history: Yes Medical History: Reports:: Anxiety, Asthma, Hyperlipidemia, Hypertension, MRSA Denies:: Cancer, Diabetes Mellitus Type 1, Diabetes Mellitus Type 2, Internal Pacemaker, Seizures *Have you ever received a pneumonia vaccine?: No *Have you received a flu vaccine this season?: No Other Medical History: Reports: Thyroid Disease Other Surgeries: Yes: No Previous Surgery, Appendectomy, Colonoscopy, Other. No
== END ==
PROVIDERS: PCP Emergency Medicine; Visit Provider Clinical Nurse Specialist Family Health
DX: M47.896 Other spondylosis, lumbar region (principal); M54.16 Radiculopathy, lumbar region; M46.1 Sacroiliitis, not elsewhere classified
CPT/HCPCS: 99202; G0463

== ENCOUNTER 2020-11-15 08:00 | Outpatient (RCR) | payer MEDICAID, SELFPAY ==
--- NOTE | 2020-11-13 15:08 | HMH.PTOPEV ---
PT Outpatient Evaluation Rehab PT Outpatient Evaluation Start: 11/13/20 13:55 Freq: Status: Active Protocol: Document 11/13/20 13:55 SAMMI (Rec: 11/13/20 15:06 [email or web address] [id number]) Electronically Signed By Esvin Patricia, PT 11/13/20 13:55 Outpatient Therapy Subjective History Subjective History Pt. is a 55 year old male who presents to outpatient PT clinic w/ complaints of chronic and constant LB/LLE P! of insidious onset 5 years ago that has progressively worsened. Pt. describes symptoms as a bruise in the L buttock, numbness that radiates to mid calf, and tingling in the toes. Pt. denies having symptoms into the RLE, but vocalizes R-sided LBP! at times. Pt. reports symptoms worsen w/ washing dishes, prolonged ambulation on hard surfaces, and prolonged sitting on a hard surface. Pt. reports having some symptom relief w/ prescribed medication, MHP, TENS unit, and going to the Chiropractor. Recent diagnostic imaging positive for 2 bulging discs per pt. report. Pt. reports having injections this coming Thursday( 11/16/20). Pt. RTMD 11/16/20. Current medications include Nexium, Provastatin, Lisinopril, Clonazepam, Gabapentin, Symbicort, and Levothyroxine. PMH includes Hypertension. Chief Complaint Pain,Gives out/Unstable, Paresthesia,Weakness Symptom Type Ache,Throb,Dull,Numbness, Tingling Symptoms Relieved By Rest/Positioning,Heat, Prescription Meds Symptoms Aggravated By Sitting,Standing,Bending/ Stooping,Physical Activity, Twisting,Walking,Lifting Prior Functional Limitations None Current Functional Limitations Lifting,Housework,Driving, Standing,Sit
== END 2020-12-17 14:30 | disposition home or self-care (01) ==
LOC: PT.CARL 08:00
PROVIDERS: Visit Provider Clinical Nurse Specialist Family Health
DX: M54.5 Low back pain (principal); M79.662 Pain in left lower leg
CPT/HCPCS: 97163

== ENCOUNTER → 2020-11-21 06:12 | Outpatient (CLI) | payer MEDICAID, SELFPAY ==
--- NOTE | 2020-11-21 | CA_ITS ---
APPROVED REPORT Exam: Exercise Treadmill Technologist: Jil White, Ht: 6 ft 0 in Wt: 171 lbs BSA: 1.99 m2 HR: 56 bpm BP: 142/89 mmHg Medical History Medications: Lisinopril,,,,, Levothyroxine,,,,, Gabapentin,,,,, KloNOPIN,,,,, LoraTADINE,,,,, PravasSTATIN,,,,, Stress Test Details Test: Moreno HR Resting HR: 64 bpm Max Heart Rate (APMHR): 166.514762 bpm Max HR Achieved: 135 bpm Target HR (85% APMHR): 141.197629 bpm % of APMHR: 81.33 Recovery HR: 85 bpm BP Resting BP: 151/90 mmHg Max BP: 178/86 mmHg Recovery BP: 133.0/95.0 mmHg ECG Resting ECG: Sinus bradycardia, ST-T abns inferiorly Clinical Exercise duration: 09:01 min Highest Stage Achieved: Exercise capacity: 10.1 METs Stress ECG Conclusion Exercised 9:00 on Moreno Protocol Max HR: 135 % of PM: 81% Max BP: 178/86 MET's: 10.1 Test stopped due to: SOA, fatigue Symptoms: No CP Arrythmias/Ectopy: Rare PAC ST-T Changes: Mild exaggeration of baseline abns in inferior leads. Otherwise normal ST response to exercise. Conclusion: Probably normal GXT to HR achieved. Myoview images reported separately. Test Summary RECOVERY 05:00 0.0 0.0 85 . 176/ 95 . . REST . . . . . . . Standing REST 05:08 0.0 0.0 64 . 151/ 90 . . Stage 1 01:00 10.0 1.7 84 . . . . Stage 1 02:00 10.0 1.7 96 . . . . Stage 1 03:00 10.0 1.7 93 . 170/ 90 . . Stage 2 01:00 12.0 2.5 105 . . . . Stage 2 02:00 12.0 2.5 105 . . . . Stage 2 03:00 12.0 2.5 110 . 178/ 86 . . Stage 3 01:00 14.0 3.4 121 . . . . Stage 3 . . . . . . . Cardiolite injected Stage 3 02:00 14.0 3.4 130 . . . . Stage 3 03:00 14.0 3.4 135 . . . . Stage 4 00:01 16.0 4.2 135 . . . Stop exercise at 09:01 RECOVERY 01:00 0.0 0.0 114 . . . . RECOVERY 02:00 0.0 0.0 107 . 140/ 80 . . RECOVERY 03:00 0.0 0.0 84 . 165/ 95 . . RECOVERY 04:00 0.0 0.0 89 . 176/ 95 . . RECOVERY 05:00 0.0 0.0 85 . 176/ 95 . . RECOVERY 05:40 0.0 0.0 81 . 133/ 95 . . Electronically signed by : Julio Mchugh, 11/22/2020 13:31:45
--- NOTE | 2020-11-21 06:23 | NM_ITS ---
APPROVED REPORT Exam: Nuclear Stress Test Indication: HTN, HYPERLIPIEMIA, FM HX., C.P. Patient Location: Outpatient Stress Tech: Jil White [place] Tech:Anna Moses, ARRT RT (R)(N)(M) Ht: 5 ft 7 in Wt: 165 lbs HR: 56 bpm BP: 142/89 mmHg BSA: 1.86 m2 BMI: 25.8 History: HTN, HYPERLIPIEMIA, FM HX., C.P Procedure: Patient exercised on Moreno protocol 9:00 minutes and sec, resting heart rate 56 bpm, resting blood pressure 142/89 mmHg, with exercise maximum heart rate achived was 139 bpm which is 81 % of the maximum predicted heart rate and blood pressure was 178/86 mmHg. Test was stopped due to FATIGUE. Patient denied any complaint of chest pain. Patient has Good exercise capacity, achieved 10.1 METs of workload on treadmill, the blood pressure response to exercise was Adequate. Electrocardiogram Resting electrocardiogram showed sinus rhythm, with exercise there is less than 1.[address] segment depression noted from the baseline EKG. The EKG portion of the exercise Myoview is nondiagnostic as patient did not achieve the target heart rate. Cardiac Stress and Resting SPECT Images: Cardiac Stress and Resting SPECT images were obtained using technetium 99m Myoview 29.8 mCi stress and 10.33 mCi at rest. Gated SPECT for analysis of segmental wall motion and calculation of the ejection fraction also done, prone images were also obtained. Cardiac stress and rest SPECT images show uniform myocardial activity, computer derived ejection fraction is 51% with no regional wall motion abnormality, right ventricle is normal size and contractility. Conclusion: 1. The EKG portion of the exercise Myoview was nondiagnostic as patient did not achieve the target heart rate, patient has good exercise capacity achieved 10.1 METs of workload on treadmill, the blood pressure response to exercise was adequate, there was no exercise-induced chest discomfort. 2. No scintigraphic evidence of reversible ischemia seen at this level of exercise, computer derived ejection fraction is 51% with no regional wall motion abnormality, right ventricle is normal size and contractility. Electronically signed by : Julio Mchugh, 11/22/2020 13:35:48
--- NOTE | 2020-11-21 08:20 | HMH.ITSHM ---
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 []PRAVASTATIN LORATADINE LISINOPRIL LEVOTHYROXINE HYDROCODONE GABAPENTIN ESOMEPRAZOLE CLONAZEPAM BUDESONIDE
== END ==
PROVIDERS: PCP Emergency Medicine; Visit Provider Emergency Medicine
DX: R07.89 Other chest pain (principal)
CPT/HCPCS: 78452; 93017; A9502

== ENCOUNTER 2020-11-30 09:57 | Day surgery (SDC) | payer MEDICAID, SELFPAY ==
[2020-11-30 10:38] VITALS: BP 125/80; PULSE 67; RESP 18; TEMP 36.4; O2SAT 98; BMI 25.8
[2020-11-30 11:40] VITALS: BP 113/79; PULSE 57; RESP 18; O2SAT 97
[2020-11-30 11:45] VITALS: BP 116/69; PULSE 61; RESP 18; O2SAT 95
--- NOTE | 2020-11-30 11:57 | HMH.PMPROC ---
- Procedure Date: 11/30/20 Time: 11:57 Anesthesiologist:: Shayy Lal MD Complications:: None Pre-procedure Diagnosis:: Bilateral sacroiliitis, chronic hip pain Post-procedure Diagnosis:: Same Indications for Procedure:: Very pleasant 55-year-old white male who presents today with chronic low back pain and chronic bilateral hip pain related to the above diagnosis. He states that he has been experiencing this pain for greater than 5 years now and he states that he has tried and failed conservative treatment including oral pain medication, chiropractic adjustments, and home stretching program for greater than 6 weeks. He states that most of his pain radiates from his low back into his bilateral buttocks and groin area. He denies undergoing any kind of injection therapy in the past. The plan for today is for the patient to undergo bilateral SI joint injections #1 under fluoroscopy. Procedure Details:: B/L SI joint injection under fluoroscopy Informed consent was obtained and the risks and benefits of the procedure was explained to the patient. The patient was taken to the procedure room and placed prone on the procedure table. The patient was prepped using ChloraPrep. The skin and subcutaneous tissues overlying the SI joints were anesthetized using lidocaine. I placed a 22-gauge needle first in the left SI joint and second in the right SI joint. Needle placement was confirmed with dye. After this we injected 5 mL bupivacaine 0.25% and Depo-Medrol 40 mg into each SI joint. Patient tolerated the procedure well with no complications. Plan and Disposition:: Follow up with this patient in 2 weeks. Will reevaluate pain symptoms at that time.
[2020-11-30 12:05] VITALS: BP 114/67; PULSE 59; RESP 20; O2SAT 98
== END 2020-11-30 12:06 | disposition home or self-care (01) ==
LOC: SC.PAINP 09:58
PROVIDERS: PCP Emergency Medicine; Visit Provider Anesthesiology Pain Medicine
DX: M46.1 Sacroiliitis, not elsewhere classified (principal); M25.559 Pain in unspecified hip; G89.29 Other chronic pain; E78.5 Hyperlipidemia, unspecified; I10 Essential (primary) hypertension; F41.9 Anxiety disorder, unspecified; J45.909 Unspecified asthma, uncomplicated; E07.9 Disorder of thyroid, unspecified
CPT/HCPCS: 27096; 76000; G0260; J1030; Q9966

== ENCOUNTER → 2020-12-03 16:19 | Outpatient (CLI) | payer MEDICAID, SELFPAY | PROVIDERS: Visit Provider Podiatrist | DX: B35.1 Tinea unguium (principal) | CPT/HCPCS: 87102; 87206 ==

== ENCOUNTER → 2020-12-06 12:43 | Outpatient (CLI) | payer MEDICAID, SELFPAY | PROVIDERS: PCP Emergency Medicine; Visit Provider Emergency Medicine | DX: R06.02 Shortness of breath (principal) | CPT/HCPCS: 94060; 94618; 94726; 94729 ==

== ENCOUNTER → 2020-12-31 09:59 | Outpatient (POV) | payer MEDICAID, SELFPAY ==
[2020-12-31 10:21] VITALS: BP 110/75; PULSE 71; RESP 18; O2SAT 98; BMI 26.3
--- NOTE | 2020-12-31 12:05 | HMH.PAINSOAP ---
[facility] Pain Management SOAP Note Subjective:: Injections the patient has been patient reports that he got 90% leave for 2 weeks to buttock and leg pain. Patient is continuing with, however to have bacteremia. He says he gets relief to his bilateral back area with pressure. He is currently undergoing chiropractic therapy which gives him short-term relief but the pain has returned. Patient says he is unable to sleep on his left side due to the pain. He does sleep on the right side. Patient was started on gabapentin per Dr. Estevez. He says that it caused him to have sexual dysfunction as well as grogginess. The patient did stop the medication. He says the medicine gave him great relief of his low back pain, however the effects were outweighing the benefits of the medicine today, his pain is a 7 out of 10. He is having pain to the low back and on bilateral sides. Patient is unsure if he wants to proceed with injective therapy at this time Review of Systems General: No recent weight changes, no fever, no sleep disturbances Respiratory: No cough, no shortness of air, no recurring pulmonary infections Cardiovascular/peripheral vascular: No chest pain, no palpitations, no edema, no shortness of breath Gastrointestinal: No new onset incontinence, normal bowel movements reported Genitourinary: No new onset incontinence Musculoskeletal: Bilateral low back pain Psychiatric: [Normal mood/affect] Neurological: [Denies weakness in extremities], [denies balance issues] Objective:: Physical exam General: Alert and oriented x3, no acute distress, pleasant and cooperative, [on room air] Lungs: Respirations even and unlabored, symmetrical chest expansion Eyes: PERRL Musculoskeletal: Flexion and extension of [] lumbar [spine] somewhat guarded secondary to pain, strength in upper and lower extremities [5/5], [antalgic gait noted] Neurological: Speech clear, [holistic pulser equal], no gross sensory deficit Assessment:: Degenerative disc disease lumbar spine, low back pain, bilateral sacroiliitis Plan:: Patient does not want to proceed with injective therapy at this time. He will great relief with the bilateral SI injections to his bilateral buttock and legs, however, no relief to his low back. He is still having significant pain with movement in his low back area. He did take himself off gabapentin due to sexual dysfunction and grogginess. We discussed starting Lyrica to see if this helps with his pain. He would like to try this before proceeding with injective therapy. We will order Lyrica 70 p.o. twice daily as well as compounding cream to apply topically to the area. We will follow-up with him in 2 weeks to see if the medications given him Risks and benefits of the medication have been explained in detail to the patient. The patient has been advised to consult with his/her primary care provider and pharmacist regarding drug-drug interaction of medications currently prescribed. Patient has been instructed to contact the clinic with any concerns before the next appointment. Dr. Riddle has reviewed this note and agrees with this plan of care. This note was dictated using voice recognition software and make contain errors or omissions. [facility] History I have reviewed the patient's past medical history: Yes Medical History: Reports:: Anxiety, Asthma, Hyperlipidemia, Hypertension Denies:: Cancer, Diabetes Mellitus Type 1, Diabetes Mellitus Type 2, Internal Pacemaker, MRSA, Seizures *Have you ever received a pneumonia vaccine?: No *Have you received a flu vaccine this season?: No Other Medical History: Reports: Thyroid Disease. Denies: Blood Transfusion Reaction Other Surgeries: Yes: No Previous Surgery, Appendectomy, Colonoscopy, Other. No: Pacemaker Amputation: No Fractures: No - *Social History Smoking Status: Former smoker Tobacco Type: smokeless tobacco # Packs/Day (cigarettes): 1 Alcohol Intake: former Alcohol Intake Frequency:: 3 or more d
== END ==
PROVIDERS: PCP Emergency Medicine; Visit Provider Clinical Nurse Specialist Family Health
DX: M51.36 Other intervertebral disc degeneration, lumbar region (principal); M46.1 Sacroiliitis, not elsewhere classified
CPT/HCPCS: 99212; G0463

== ENCOUNTER → 2021-01-17 08:08 | Outpatient (POV) | payer MEDICAID, SELFPAY ==
[2021-01-17 08:21] VITALS: BP 128/88; PULSE 66; RESP 18; O2SAT 98; BMI 25.8
--- NOTE | 2021-01-17 08:32 | HMH.PAINSOAP ---
[facility] Pain Management SOAP Note Subjective:: Patient is a 55-year old black male who presents today for follow-up. Patient is being treated for low back pain with radiation into left buttock and left leg. Patient also has right hip pain. He does have pain, no numbness or tingling to the areas. Early he was given Lyrica at his last visit. Patient tried gabapentin for his symptoms, however, had sexual side effects along with moodiness. At last visit, the patient was given Lyrica. He says the symptoms with Lyrica were worse than gabapentin. He has stopped the medication. Patient is now having right groin pain. He is on Mcfaddin prescribed by Dr. Estevez. Patient is rating his pain an 8 out of 10 today. Patient has had bilateral SI injections which did give him about a month of relief to his left low back and left leg pain. He says he never got relief of his bilateral mid to low back pain, however. Patient is requesting a new MRI, however, he did undergo imaging within the last 6 months. He continues to have significant pain that is not relieved with repositioning. He does say he has to sit down and the pain is intense, however, the pain does not return following prolonged sitting. He has tried physical therapy for greater than 6 weeks. He is continuing with chiropractic therapy but does not get any long-term relief. He continues with ice and heat therapies and anti-inflammatories. Patient is requesting medication other than Mcfaddin today. Review of Systems General: No recent weight changes, no fever, no sleep disturbances Respiratory: No cough, no shortness of air, no recurring pulmonary infections Cardiovascular/peripheral vascular: No chest pain, no palpitations, no edema, no shortness of breath Gastrointestinal: No new onset incontinence, normal bowel movements reported Genitourinary: No new onset incontinence Musculoskeletal: Bilateral low back pain, right hip pain, right groin pain, left leg pain Psychiatric: [Normal mood/affect] Neurological: [Denies weakness in extremities], [denies balance issues] Objective:: Physical exam General: Alert and oriented x3, no acute distress, pleasant and cooperative, [on room air] Lungs: Respirations even and unlabored, symmetrical chest expansion Eyes: PERRL Musculoskeletal: Flexion and extension of lumbar [spine] somewhat guarded secondary to pain, strength in upper and lower extremities [5/5], [antalgic gait noted] Neurological: Speech clear, [animal breeder equal], no gross sensory deficit Assessment:: Degenerative disc disease lumbar spine with lumbar radiculopathy symptoms Plan:: Patient did try SI injections and got approximately 1 month of relief to his left leg and left low back, however, continues to have significant pain in his mid and low back areas as well as in the right arm. Patient and I did discuss that the next step would be undergoing a lumbar epidural steroid injection. Patient was very reluctant but is in agreement to proceed with the injection. He has stopped taking Lyrica and gabapentin due to significant side effects. He has asked for a change in medication from Smadex. I have advised the patient that we are interventional and will be happy to discuss interventional options with him, however, we will not be able to change his oral medication management at this time. His medicine is prescribed to him by Dr. Estevez. We will schedule the patient for a lumbar epidural steroid injection at L4-L5. He is not on any anticoagulation therapy. We will follow-up with him after his injection for reevaluation of symptoms. The patient has been instructed to contact the clinic if he has any concerns for his next appointment. Possible side effects of corticosteroids have been discussed with the patient. Risks and benefits of the procedure have been explained to the patient. Patient would like to proceed with the procedure. Patient has been instructed to contact the clinic with a
== END ==
PROVIDERS: PCP Emergency Medicine; Visit Provider Clinical Nurse Specialist Family Health
DX: M51.16 Intervertebral disc disorders with radiculopathy, lumbar region (principal)
CPT/HCPCS: 99212; G0463

== ENCOUNTER → 2021-01-18 09:57 | Outpatient (CLI) | payer MEDICAID, SELFPAY | PROVIDERS: Visit Provider Internal Medicine Gastroenterology | DX: Z01.812 Encounter for preprocedural laboratory examination (principal); Z11.52 Encounter for screening for COVID-19; Z13.810 Encounter for screening for upper gastrointestinal disorder | CPT/HCPCS: U0003 ==

== ENCOUNTER 2021-01-21 10:11 | Day surgery (SDC) | payer MEDICAID, SELFPAY ==
[2021-01-16 13:06] VITALS: BMI 25.8
[2021-01-21] VITALS (7 sets, daily range): BP systolic 83–119; BP diastolic 52–76; PULSE 45–63; RESP 16–18; TEMP 36.1–36.7; O2SAT 94–98
--- NOTE | 2021-01-21 11:47 | P.PN_ITS ---
[facility] Anesthesia Checklist - Patient Identification Patient Identification: Arm Band - Structural Data Admitted From: Home Planned Operative Procedure/s: EGD Consent for Planned Operative Procedure(s) Verified: Yes Verified Documents: Surgical Consent, History and Physical - NPO Status Verified Time NPO: 00:00 - Additional verifications Anesthesia Reactions: No Hx Blood Transfusions: No Blood Transfusion Reaction: No - Airway Assessment C-Spine Mobility Assessed: Yes (mp2) TMJ Mobility Assessed: Yes Dentition: Good Dentition - Neurological Assessment Level of Consciousness: Awake, Alert - Anesthesia Plan Anesthesia Risk discussed: Yes Anesthesia Plan: Verified ASA Class: III Anesthesia Type: MAC [facility] History I have reviewed the patient's past medical history: Yes Medical History: Reports:: Anxiety, Asthma, Hyperlipidemia, Hypertension Denies:: Cancer, Diabetes Mellitus Type 1, Diabetes Mellitus Type 2, Internal Pacemaker, MRSA, Seizures *Have you ever received a pneumonia vaccine?: No *Have you received a flu vaccine this season?: No Other Medical History: Reports: Hypothyroidism, Thyroid Disease. Denies: Blood Transfusion Reaction Anesthesia experience/problems:: nac Other Surgeries: Yes: Appendectomy, Colonoscopy, Other. No: Pacemaker Amputation: No Fractures: No - *Social History Last grade of school completed: Some college Smoking Status: Former smoker Tobacco Type: smokeless tobacco # Packs/Day (cigarettes): 1 Alcohol Intake: never Alcohol Intake Frequency:: 3 or more drinks per day Substance Use Type: denies use *Occupational Status:: unemployed Housing: house Household Members: significant other *Travel in the last 8 weeks: None - Psychiatric History Pschychiatric History:: Reports:: Anxiety Family Hx:: No significant family history
--- NOTE | 2021-01-21 12:01 | HMH.PROC ---
[facility] Procedure Note Procedure Note:: Upper Endoscopy Procedure Report: Esophagogastroduodenoscopy with cold biopsies Endoscopost: Rafael Arias II, MD Referring Physician: Mark Estevez MD Date of Procedure: January 21, 2021 Equipment: Olympus GIF 190 standard upper endoscope Sedation: MAC sedation Indications: Mr. Mcclain is a 55-year-old gentleman with chronic GERD. He did have an upper endoscopy 4 to [address] Jason Villegas and had reflux esophagitis and an esophageal stricture that was dilated. He has been on Nexium since that time. He does have full control of his GERD symptoms. He reports no heartburn, indigestion, dysphagia or dyspepsia. Procedure: Prior to the procedure, a history and physical exam was performed, and patient's medications and allergies were reviewed. The risks, benefits and alternatives of the sedation and procedure were discussed with the patient. All questions were answered and informed consent was obtained. The patient was brought to the procedure room. Patient identification and proposed procedure were verified by the physician and the nurse. The patient was placed in a left lateral decubitus position and the scope was passed under direct vision. Throughout the procedure, the patient's blood pressure, pulse, and oxygen saturations were monitored continuously. The upper GI endoscopy was accomplished without difficulty. The patient tolerated the procedure well. Findings: The scope was passed directly into the upper esophagus and advanced to the third portion of the duodenum. The post bulbar duodenum and duodenal bulb were normal with normal mucosa and conniventes. The scope was withdrawn through a normal duodenal bulb and pylorus into the stomach. There was bile reflux with mild reactive gastropathy of the antrum. The remainder of the body and fundus of the stomach were grossly normal. Upon retroflexion there was no hiatal hernia. 2 biopsies were taken in the antrum and along the lesser curvature for histology to rule out gastritis and/or H pylori. The scope was then withdrawn into the esophagus. There was a serrated Z-line. Cold biopsies were taken at the GE junction. There was no evidence of reflux esophagitis or Cat's. There was no Schatzki's ring. The remainder of the esophageal mucosa was normal. Impression: 1. Nonerosive GERD 2. Mild linear reactive gastropathy of antrum Plan: I will follow-up the biopsies. The patient does have control of his symptoms on PPI therapy. He does have uncomplicated GERD.
== END 2021-01-21 12:45 | disposition home or self-care (01) ==
LOC: OUTP 10:12
PROVIDERS: PCP Emergency Medicine; Visit Provider Internal Medicine Gastroenterology
PROC: 0DJ08ZZ Inspection of Upper Intestinal Tract, Via Natural or Artificial Opening Endoscopic (ICD-10-PCS; CPT 43235; principal; 2021-01-21 11:00)
DX: Z87.19 Personal history of other diseases of the digestive system (principal); K21.9 Gastro-esophageal reflux disease without esophagitis; K31.9 Disease of stomach and duodenum, unspecified; E78.5 Hyperlipidemia, unspecified; I10 Essential (primary) hypertension; F41.9 Anxiety disorder, unspecified; J45.909 Unspecified asthma, uncomplicated; E03.9 Hypothyroidism, unspecified; Z87.891 Personal history of nicotine dependence; Z79.899 Other long term (current) drug therapy; Z88.1 Allergy status to other antibiotic agents
CPT/HCPCS: 43239

== ENCOUNTER 2021-01-25 10:15 | Day surgery (SDC) | payer MEDICAID, SELFPAY ==
[2021-01-25 10:27] VITALS: BP 121/73; PULSE 61; RESP 18; TEMP 36.4; O2SAT 93; BMI 25.8
[2021-01-25 10:42] VITALS: BP 122/76; PULSE 65; RESP 18; O2SAT 97
[2021-01-25 10:47] VITALS: BP 125/78; PULSE 62; RESP 18; O2SAT 99
--- NOTE | 2021-01-25 10:54 | P.PCN_ITS ---
- Procedure Date: 01/25/21 Time: 10:54 Anesthesiologist:: Marty Riddle MD Complications:: None Pre-procedure Diagnosis:: Disease of lumbar spine with lumbar radiculopathy symptoms down the left leg and left low back Post-procedure Diagnosis:: Same Indications for Procedure:: This patient is a pleasant 55-year-old white male who we have been treating for low back pain with lumbar radiculopathy symptoms. He had SI joint injections which have not given him relief of his symptoms. He has also been on gabapentin and Lyrica and could not tolerate because of severe side effects. Is given [place] 5 mg 3 times a day by Dr. Estevez. He continues to have increasing pain in his left low back and left leg. We will do a lumbar pleural steroid injection today to see if this helps with the symptoms. I have also talked to him about starting Cymbalta 30 mg once a day to help with the symptoms. Procedure Details:: Informed consent was obtained and the risk and benefits of the procedure was explained to the patient. The patient was taken to the procedure room. The patient was placed prone on the procedure table. The patient was prepped and draped in sterile fashion. C-arm fluoroscopy was used to view the lumbar spine. Skin and subcutaneous tissues were anesthetized using lidocaine. I placed an 18-gauge epidural needle and advanced into the L4-L5 interspace using fluoroscopic guidance and [id number] to air. After confirmation of needle placement in the epidural space with dye I injected 2 mL of lidocaine 1.5% with Depo-Medrol 80 mg. Patient tolerated the procedure well with no complications. Plan and Disposition:: We will follow-up with him in 2 weeks. Will reevaluate symptoms at that time. We will also start him on Cymbalta 30 mg once a day to help with his pain symptoms.
[2021-01-25 11:02] VITALS: BP 113/76; PULSE 62; RESP 18; O2SAT 98
== END 2021-01-25 11:03 | disposition home or self-care (01) ==
LOC: SC.PAINP 10:15
PROVIDERS: PCP Emergency Medicine; Visit Provider Anesthesiology
DX: M51.16 Intervertebral disc disorders with radiculopathy, lumbar region (principal); E78.5 Hyperlipidemia, unspecified; I10 Essential (primary) hypertension; E07.9 Disorder of thyroid, unspecified; J45.909 Unspecified asthma, uncomplicated; F41.9 Anxiety disorder, unspecified; Z79.899 Other long term (current) drug therapy; Z88.1 Allergy status to other antibiotic agents
CPT/HCPCS: 62323; J1040; Q9966

== ENCOUNTER → 2021-02-14 09:31 | Outpatient (POV) | payer MEDICAID, SELFPAY ==
--- NOTE | 2021-02-14 09:49 | HMH.PAINSOAP ---
[facility] Pain Management SOAP Note Subjective:: Patient is a 55-year-old white male who presents today for follow-up. Patient has had #1 lumbar epidural steroid injection. Prior to this injection, he did have bilateral SI injections. The patient got no relief with the SI injections. He got minimal relief with the epidural steroid injection. He says he got 2 weeks of some relief, but not enough relief to undergo a repeat injection. He is having pain in his low back with radiation into his bilateral lower extremities. He has tried gabapentin and Lyrica but was unable to tolerate the medications due to sexual side effects. He is currently on [place] 5 mg 1 tablet p.o. 3 times daily. He does admit he is having to take more medication than prescribed due to significant pain. Dr. Riddle did start the patient on Cymbalta, however, he says it is causing him to have diarrhea. As result, he has stopped the medication. Patient is continued to have significant pain. We did order the patient an external TENS unit which he says gives him short-term relief, but pain does return immediately once he turns the device off. He is having difficulty standing, walking, sitting. He has had low back pain for prolonged period. The pain is deep in nature and stabbing and throbbing. It does radiate into legs and feet. He does rate his pain a 7 or an 8 out of 10 today. He has tried physical therapy in the past for greater than 6 weeks and continues with home stretching. He has tried anti-inflammatories, Cymbalta, gabapentin, and Lyrica. [place] is not relieving his pain. Ice and heat therapy have not helped the patient. Review of Systems General: No recent weight changes, no fever, no sleep disturbances Respiratory: No cough, no shortness of air, no recurring pulmonary infections Cardiovascular/peripheral vascular: No chest pain, no palpitations, no edema, no shortness of breath Gastrointestinal: No new onset incontinence, diarrhea with Cymbalta Genitourinary: No new onset incontinence Musculoskeletal: Low back pain with radiation into bilateral lower extremities and feet Psychiatric: [Normal mood/affect] Neurological: Weakness bilateral lower extremities Objective:: Physical exam General: Alert and oriented x3, no acute distress, pleasant and cooperative, [on room air] Lungs: Respirations even and unlabored, symmetrical chest expansion Eyes: PERRL Musculoskeletal: Flexion and extension of lumbar [spine] somewhat guarded secondary to pain, strength in upper and lower extremities [5/5], [antalgic gait noted] Neurological: Speech clear, [credit authorizer equal], no gross sensory deficit Assessment:: Degenerative 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 He did not get any relief. He has tried and failed conservative therapies of physical therapy for more than 6 weeks, home stretching, anti-inflammatories, as well as Cymbalta, Lyrica, and gabapentin. He is currently on [place] with minimal relief. He is continuing rate his pain at a 7 or an 8 out of 10. Given his symptoms and failed injective therapy of epidural steroid injection and bilateral SI injections, we will proceed with possible spinal cord stimulation trial. He will need to undergo psychological evaluation. We will see him back after the psychological evaluation to establish a further plan of care. Patient has been instructed to contact the clinic with any concerns before the next appointment. Dr. Riddle has reviewed this note and agrees with this plan of care. This note was dictated using voice recognition software and make contain errors or omissions. [facility] History I have reviewed the patient's past medical history: Yes Medical History: Reports:: Anxiety, Asthma, Hyperlipidemia, Hypertension Denies:: Cancer, Diabetes Mellitus Type 1, Diabetes Mellitus Type 2,
[2021-02-14 10:02] VITALS: BP 135/92; PULSE 54; RESP 18; O2SAT 96; BMI 25.0
== END ==
PROVIDERS: PCP Emergency Medicine; Visit Provider Clinical Nurse Specialist Family Health
DX: M51.16 Intervertebral disc disorders with radiculopathy, lumbar region (principal); G89.29 Other chronic pain
CPT/HCPCS: 99212; G0463

== ENCOUNTER → 2021-02-15 15:06 | Outpatient (CLI) | payer MEDICAID, SELFPAY ==
[2021-02-15 15:55] LABS: Amphetamine/Metha Screen,Urine Negative ng/ml (<1000)
[2021-02-15 15:56] LABS: Barbiturates Screen,Urine Negative ng/ml (<200)
[2021-02-15 15:57] LABS: Benzodiazepines Screen,Urine Negative ng/ml (<200); Cannabinoid Screen,Urine Negative ng/ml (<50)
[2021-02-15 15:58] LABS: Cocaine Screen,Urine Negative ng/ml (<300)
[2021-02-15 15:59] LABS: Methadone Screen,Urine Negative ng/ml (<300); Opiate Screen,Urine Positive ng/ml (<300)
[2021-02-15 16:00] LABS: Phencyclidine Screen,Urine Negative ng/ml (<25)
== END ==
PROVIDERS: Visit Provider Emergency Medicine
DX: Z79.899 Other long term (current) drug therapy (principal)
CPT/HCPCS: 80305

== ENCOUNTER → 2021-04-16 13:49 | Outpatient (CLI) | payer MEDICAID, SELFPAY ==
[2021-04-16 14:43] LABS: Amphetamine/Metha Screen,Urine Negative ng/ml (<1000); Barbiturates Screen,Urine Negative ng/ml (<200); Benzodiazepines Screen,Urine Negative ng/ml (<200); Cannabinoid Screen,Urine Negative ng/ml (<50); Cocaine Screen,Urine Negative ng/ml (<300); Methadone Screen,Urine Negative ng/ml (<300); Opiate Screen,Urine Positive ng/ml (<300); Phencyclidine Screen,Urine Negative ng/ml (<25)
== END ==
PROVIDERS: Visit Provider Emergency Medicine
DX: Z79.899 Other long term (current) drug therapy (principal)
CPT/HCPCS: 80305

== ENCOUNTER → 2021-04-23 10:03 | Outpatient (POV) | payer MEDICAID, SELFPAY ==
[2021-04-23 10:25] VITALS: BP 185/96; PULSE 77; RESP 18; O2SAT 98; BMI 25.0
--- NOTE | 2021-04-23 11:05 | HMH.PAINSOAP ---
[facility] Pain Management SOAP Note Subjective:: Patient is a 55-year-old white male who presents today for follow-up. He has undergone injective therapy in our clinic which includes epidural steroid injections as well as bilateral SI injections. He got minimal relief with injective therapy. He does have pain in his low back with radiation into bilateral lower extremities and groin. He has tried gabapentin, Lyrica and Cymbalta. He says he did have sexual side effects due to gabapentin and Lyrica. He is currently taking [place] prescribed by Dr. Estevez. Patient reports to have had a dispute with Dr. Estevez in his office recently and was advised to see Dr. Hugo. Patient says that he also saw a physician that was associated with [facility]. He says that the provider advised him he would benefit from a pelvis MRI. He is having pain in his low back area. He has had a lumbar MRI. He has bilateral buttock hip and groin pain. The pain does go into the bilateral lower extremities causing him to also have numbness and tingling. We did have the patient scheduled for a [place] spinal cord stimulator trial, but the patient has decided to defer until he can get a MRI of his pelvis per the recommendation of his physician at the [facility]. Patient says that that provider did not order the MRI for him. He is requesting us to order the MRI for him today. He denies any changes in bowel or bladder habit. He denies any saddle anesthesia. Review of Systems General: No recent weight changes, no fever, no sleep disturbances Respiratory: No cough, no shortness of air, no recurring pulmonary infections Cardiovascular/peripheral vascular: No chest pain, no palpitations, no edema, no shortness of breath Gastrointestinal: No new onset incontinence, normal bowel movements reported Genitourinary: No new onset incontinence Musculoskeletal: Low back pain with radiation into bilateral buttock, hips groin and legs with numbness and tingling Psychiatric: [Normal mood/affect] Neurological: [Denies weakness in extremities], [denies balance issues] Objective:: Physical exam General: Alert and oriented x3, no acute distress, pleasant and cooperative Lungs: Respirations even and unlabored, symmetrical chest expansion Eyes: PERRL Musculoskeletal: Flexion and extension of lumbar [spine] somewhat guarded secondary to pain, [antalgic gait noted] Neurological: Speech clear, no gross sensory deficit Assessment:: . She is degenerative disc disease lumbar spine with lumbar radiculopathy symptoms, chronic low back pain Plan:: The patient has been advised that it is Dr. Estevez's discretion if he does wish to continue his oral medications. He does understand that while he may withdrawal from [place], it would not be a medical emergency. he has requested an MRI of the pelvis. He has been advised we can order the pelvis, but cannot assure him that the insurance will approve the MRI. He has had an MRI of his lumbar spine. Per the patient's request due to a Social Security physician recommending pelvis MRI, we will order today. We will see him back afterwards to discuss further plan of care. Patient has been instructed to contact the clinic with any concerns before the next appointment. Dr. Riddle has reviewed this note and agrees with this plan of care. This note was dictated using voice recognition software and make contain errors or omissions. [facility] History I have reviewed the patient's past medical history: Yes Medical History: Reports:: Anxiety, Asthma, Hyperlipidemia, Hypertension Denies:: Cancer, Diabetes Mellitus Type 1, Diabetes Mellitus Type 2, Internal Pacemaker, MRSA, Seizures *Have you ever received a pneumonia vaccine?: No *Have you received a flu vaccine this season?: Yes Other Medical History: Reports: Hypothyroidism, Thyroid Disease. Denies: Blood Transfusion Reaction Other Surgeries: Yes: No Previous Surgery, A
== END ==
PROVIDERS: Visit Provider Clinical Nurse Specialist Family Health
DX: M51.16 Intervertebral disc disorders with radiculopathy, lumbar region (principal); G89.29 Other chronic pain
CPT/HCPCS: 99212; G0463

== ENCOUNTER → 2021-05-08 08:06 | Outpatient (CLI) | payer MEDICAID, SELFPAY ==
--- NOTE | 2021-05-08 08:17 | MR_ITS ---
PROCEDURE INFORMATION: Exam: MR Pelvis Without Contrast, Musculoskeletal Exam date and time: 05/08/2021 8:17 AM Age: 55 years old Clinical indication: Hip pain; Bilateral; Patient HX: Left hip/leg pain, groin pain; Additional info: Groin pain, buttock pain, hip pain TECHNIQUE: Imaging protocol: Magnetic resonance images of the pelvis without intravenous contrast. Exam focused on the musculoskeletal system. COMPARISON: 1. CT ABDOMEN PELVIS W CON 07/12/2019 9:42 AM 2. MR LUMBAR SPINE WO CON 10/18/2020 1:42 PM FINDINGS: Limitations: Motion artifact. Bowel: Multiple colonic diverticula are present without evidence of diverticulitis. Bones/joints: There is no acute fracture or dislocation. No aggressive bone lesions are present. No degenerative Muscles: Focal severe atrophy of the left rectus femoris muscle in the proximal thigh is incompletely imaged on this study but suggests a remote injury (series 3/images 42-45, series 6/image 8). Soft tissues: No suspicious soft tissue mass. IMPRESSION: Incompletely imaged focal severe atrophy of the left rectus femoris muscle suggestive of remote injury.
== END ==
PROVIDERS: PCP Emergency Medicine; Visit Provider Clinical Nurse Specialist Family Health
DX: M25.552 Pain in left hip (principal); M25.551 Pain in right hip; R10.2 Pelvic and perineal pain
CPT/HCPCS: 72195

== ENCOUNTER → 2021-05-14 10:21 | Outpatient (POV) | payer MEDICAID, SELFPAY ==
[2021-05-14 10:38] VITALS: RESP 18; O2SAT 97; BMI 24.4
--- NOTE | 2021-05-14 10:54 | HMH.PAINSOAP ---
[facility] Pain Management SOAP Note Subjective:: Patient is a pleasant 55-year-old male who comes in here today for follow-up after an MRI of the pelvis. Patient is currently being treated for degenerative disc disease of lumbar spine with lumbar radiculopathy, chronic low back pain. Patient has had low back pain for many years that radiates to his bilateral lower extremities. He reports that recently, he feels like his legs just give up on him. We have tried doing SI Injections that provided no relief. We also have tried other injections and oral medications that did not provide much relief. We were working on getting the patient approved for a spinal cord stimulator, but the patient was advised by the social security physician to get other imaging before proceeding with the procedure. Patient's MRI pelvis shows a focal severe atrophy of the left rectus femoris muscle which could be due to an injury. Patient also states that he will start seeing Dr. Hugo to manage his pain in the meantime. Patient rates his pain today of 8 out of 10. His [place] is [phone] with an active morphine equivalent of 20. Review of Systems General: No recent weight changes, no fever, no sleep disturbances Respiratory: No cough, no shortness of air, no recurring pulmonary infections Cardiovascular/peripheral vascular: No chest pain, no palpitations, no edema, no shortness of breath Gastrointestinal: No new onset incontinence, normal bowel movements reported Genitourinary: No new onset incontinence Musculoskeletal: Low back pain Psychiatric: [Normal mood/affect] Neurological: [Denies weakness in extremities], [denies balance issues] Objective:: Physical exam General: Alert and oriented x3, no acute distress, pleasant and cooperative Lungs: Respirations even and unlabored, symmetrical chest expansion Eyes: PERRL Musculoskeletal: Flexion and extension of lumbar [spine] somewhat guarded secondary to pain, [antalgic gait noted] Neurological: Speech clear, no gross sensory deficit Assessment:: Degenerative disc disease of lumbar spine with lumbar radiculopathy symptoms, chronic low back pain Plan:: MRI Pelvis without Contrast 05/08/21 Ordering Physician: Hayley Pineda APRN Date of Service: 05/08/21 Procedure(s): MR pelvis wo con Accession Number(s): [id number] cc: Mark Estevez MD; Fanny Gomez MD~ PROCEDURE INFORMATION: Exam: MR Pelvis Without Contrast, Musculoskeletal Exam date and time: 05/08/2021 8:17 AM Age: 55 years old Clinical indication: Hip pain; Bilateral; Patient HX: Left hip/leg pain, groin pain; Additional info: Groin pain, buttock pain, hip pain TECHNIQUE: Imaging protocol: Magnetic resonance images of the pelvis without intravenous contrast. Exam focused on the musculoskeletal system. COMPARISON: 1. CT ABDOMEN PELVIS W CON 07/12/2019 9:42 AM 2. MR LUMBAR SPINE WO CON 10/18/2020 1:42 PM FINDINGS: Limitations: Motion artifact. Bowel: Multiple colonic diverticula are present without evidence of diverticulitis. Bones/joints: There is no acute fracture or dislocation. No aggressive bone lesions are present. No degenerative Muscles: Focal severe atrophy of the left rectus femoris muscle in the proximal thigh is incompletely imaged on this study but suggests a remote injury (series 3/images 42-45, series 6/image 8). Soft tissues: No suspicious soft tissue mass. IMPRESSION: Incompletely imaged focal severe atrophy of the left rectus femoris muscle suggestive of remote injury. Patient is complaining that he is legs are giving up on him. Since the patient did not get any relief from the SI injection, this issue may not be an SI etiology. We we will refer the patient to neurosurgery to explore other options. I think it would also be beneficial if the patient get an EMG especially to the left side since he
== END ==
PROVIDERS: Visit Provider Clinical Nurse Specialist Family Health
DX: M51.16 Intervertebral disc disorders with radiculopathy, lumbar region (principal); G89.29 Other chronic pain
CPT/HCPCS: 99212; G0463

== ENCOUNTER → 2021-05-14 14:02 | Outpatient (CLI) | payer MEDICAID, SELFPAY ==
[2021-05-14 15:45] LABS: Amphetamine/Metha Screen,Urine Negative ng/ml (<1000)
[2021-05-14 15:46] LABS: Barbiturates Screen,Urine Negative ng/ml (<200)
[2021-05-14 15:48] LABS: Benzodiazepines Screen,Urine Negative ng/ml (<200)
[2021-05-14 15:49] LABS: Cannabinoid Screen,Urine Negative ng/ml (<50); Cocaine Screen,Urine Negative ng/ml (<300)
[2021-05-14 15:50] LABS: Methadone Screen,Urine Negative ng/ml (<300)
[2021-05-14 15:51] LABS: Opiate Screen,Urine Positive ng/ml (<300)
[2021-05-14 15:52] LABS: Phencyclidine Screen,Urine Negative ng/ml (<25)
== END ==
PROVIDERS: Visit Provider Family Medicine
DX: F41.9 Anxiety disorder, unspecified (principal)
CPT/HCPCS: 80305

== ENCOUNTER → 2021-06-03 15:55 | Outpatient (CLI) | payer MEDICAID, SELFPAY ==
[2021-06-03 17:26] LABS: Amphetamine/Metha Screen,Urine Negative ng/ml (<1000)
[2021-06-03 17:27] LABS: Barbiturates Screen,Urine Negative ng/ml (<200)
[2021-06-03 17:28] LABS: Benzodiazepines Screen,Urine Negative ng/ml (<200); Cannabinoid Screen,Urine Negative ng/ml (<50)
[2021-06-03 17:29] LABS: Cocaine Screen,Urine Negative ng/ml (<300)
[2021-06-03 17:30] LABS: Methadone Screen,Urine Negative ng/ml (<300); Opiate Screen,Urine Positive ng/ml (<300)
[2021-06-03 17:31] LABS: Phencyclidine Screen,Urine Negative ng/ml (<25)
== END ==
PROVIDERS: Visit Provider Family Medicine
DX: Z79.899 Other long term (current) drug therapy (principal)
CPT/HCPCS: 80305

== ENCOUNTER → 2021-06-17 16:00 | Outpatient (CLI) | payer MEDICAID, SELFPAY ==
[2021-06-17 14:42] LABS: Amphetamine/Metha Screen,Urine Negative ng/ml (<1000); Benzodiazepines Screen,Urine Negative ng/ml (<200)
[2021-06-17 14:43] LABS: Barbiturates Screen,Urine Negative ng/ml (<200); Cannabinoid Screen,Urine Negative ng/ml (<50)
[2021-06-17 14:44] LABS: Cocaine Screen,Urine Negative ng/ml (<300)
[2021-06-17 14:45] LABS: Methadone Screen,Urine Negative ng/ml (<300); Opiate Screen,Urine Positive ng/ml (<300)
[2021-06-17 14:46] LABS: Phencyclidine Screen,Urine Negative ng/ml (<25)
== END ==
PROVIDERS: Visit Provider Family Medicine
DX: Z79.899 Other long term (current) drug therapy (principal)
CPT/HCPCS: 80305

== ENCOUNTER → 2021-07-01 16:00 | Outpatient (CLI) | payer MEDICAID, SELFPAY ==
[2021-07-01 15:01] LABS: Benzodiazepines Screen,Urine Negative ng/ml (<200)
[2021-07-01 15:02] LABS: Amphetamine/Metha Screen,Urine Negative ng/ml (<1000); Barbiturates Screen,Urine Negative ng/ml (<200)
[2021-07-01 15:03] LABS: Cannabinoid Screen,Urine Negative ng/ml (<50)
[2021-07-01 15:04] LABS: Cocaine Screen,Urine Negative ng/ml (<300); Methadone Screen,Urine Negative ng/ml (<300)
[2021-07-01 15:05] LABS: Opiate Screen,Urine Positive ng/ml (<300)
[2021-07-01 15:06] LABS: Phencyclidine Screen,Urine Negative ng/ml (<25)
== END ==
PROVIDERS: Visit Provider Family Medicine
DX: Z79.899 Other long term (current) drug therapy (principal)
CPT/HCPCS: 80305

== ENCOUNTER → 2021-08-15 08:41 | Outpatient (POV) | payer MEDICAID, SELFPAY ==
[2021-08-15 08:53] VITALS: BP 157/101; PULSE 76; RESP 20; O2SAT 98; BMI 25.0
--- NOTE | 2021-08-15 09:37 | HMH.PAINSOAP ---
[facility] Pain Management SOAP Note Subjective:: Patient is a pleasant 56-year-old male who presents today for follow-up. Patient is currently being treated for degenerative disc disease of lumbar spine with lumbar radiculopathy symptoms, chronic low back pain, left leg pain. We have tried SI injections to his left SI with no relief of symptoms. Patient states that he continues to have pain and numbness that radiates from his left upper buttock to his left leg all the way down to his left foot. From his left hip MRI it showed a focal severe atrophy of the left rectus femoris muscle which could be from an injury. When I last saw this patient, I refer the patient to neurosurgery and I recommended an EMG. He was found to have some more arthritis on his left hip. There is nothing for them to do. For pain, Dr. Hugo has been managing the patient with [place] 5 mg 4 times a day. Patient is unsure if Dr. Hugo will continue this medication. He was told by Dr. Hugo that he needs to learn to live with it. He rates his pain today as 8 out of 10. He denies any recent falls or traumas. [facility] #[phone] with an active morphine equivalent of 20. Review of Systems: General: No recent weight changes, no fever, no sleep disturbances Respiratory: No cough, no shortness of air, no recurring pulmonary infections Cardiovascular/peripheral vascular: No chest pain, no palpitations, no edema, no shortness of breath Gastrointestinal: No new onset incontinence, normal bowel movements reported Genitourinary: No new onset incontinence Musculoskeletal: Low back pain, left leg pain Psychiatric: [Normal mood/affect] Neurological: [Denies weakness in extremities], [denies balance issues] Objective:: Physical Exam: General: Alert and oriented x3, no acute distress, pleasant and cooperative, [on room air] Lungs: Respirations even and unlabored, symmetrical chest expansion Eyes: PERRL Musculoskeletal: Flexion and extension of lumbar [spine] somewhat guarded secondary to pain, [antalgic gait noted]; limited range of motion of the left hip secondary to pain Neurological: Speech clear, no gross sensory deficit Assessment:: Degenerative disc disease of lumbar spine with lumbar radiculopathy symptoms, left hip osteoarthritis Plan:: I have discussed with the patient that we can try to do injective therapy for his left hip to manage his pain. Patient is not interested at all with any injective therapy. We had also talked about the spinal cord stimulator for his low back pain. Patient is not interested in moving forward with any procedures at all. We will not continue the patient's [place] 5 mg 4 times a day. For his pain, I will add a diclofenac 75 mg twice a day that he can take as needed. Patient is welcome to call our clinic anytime if he needs left hip intra-articular injections. Follow-up in 1 month Patient has been instructed to contact the clinic with any concerns before the next appointment. Dr. Riddle has reviewed this note and agrees with this plan of care. This note was dictated using voice recognition software and make contain errors or omissions. [facility] History Medical History: Reports:: Anxiety, Asthma, Cancer, Hyperlipidemia, Hypertension Denies:: Diabetes Mellitus Type 1, Diabetes Mellitus Type 2, Internal Pacemaker, MRSA, Seizures *Have you ever received a pneumonia vaccine?: No *Have you received a flu vaccine this season?: Yes Other Medical History: Reports: Hypothyroidism, Thyroid Disease. Denies: Blood Transfusion Reaction Other Surgeries: Yes: No Previous Surgery, Appendectomy, Colonoscopy, EGD, Other. No: Pacemaker Amputation: No Fractures: No - *Social History Smoking Status: Former smoker Tobacco Type: smokeless tobacco # Packs/Day (cigarettes): 1 Alcohol Intake: never Alcohol Intake Frequency:: 3 or more drinks per day Substance Use Type: denies use *Occupational Status:: other Housing: house Household Members: significant other *
== END ==
PROVIDERS: Visit Provider Student in an Organized Health Care Education/Training Program
DX: M51.16 Intervertebral disc disorders with radiculopathy, lumbar region (principal); M16.12 Unilateral primary osteoarthritis, left hip
CPT/HCPCS: 99212; G0463

== ENCOUNTER → 2021-09-10 09:28 | Outpatient (CLI) | payer MEDICAID, SELFPAY ==
[2021-09-10 11:11] LABS: Prostate Specific Ag Screen 1.1 ng/ml (0.0-4.0)
== END ==
PROVIDERS: Visit Provider Urology
DX: Z12.5 Encounter for screening for malignant neoplasm of prostate (principal)
CPT/HCPCS: 36415; G0103

== ENCOUNTER → 2021-09-16 09:02 | Outpatient (CLI) | payer MEDICAID, SELFPAY ==
[2021-09-16 14:00] LABS: Amphetamine/Metha Screen,Urine Negative ng/ml (<1000)
[2021-09-16 14:01] LABS: Barbiturates Screen,Urine Negative ng/ml (<200); Benzodiazepines Screen,Urine Negative ng/ml (<200)
[2021-09-16 14:02] LABS: Cannabinoid Screen,Urine Negative ng/ml (<50)
[2021-09-16 14:03] LABS: Cocaine Screen,Urine Negative ng/ml (<300)
[2021-09-16 14:04] LABS: Methadone Screen,Urine Negative ng/ml (<300); Opiate Screen,Urine Positive ng/ml (<300)
[2021-09-16 14:05] LABS: Phencyclidine Screen,Urine Negative ng/ml (<25)
== END ==
PROVIDERS: PCP Family Medicine; Visit Provider Family Medicine
DX: Z79.899 Other long term (current) drug therapy (principal)
CPT/HCPCS: 80305

== ENCOUNTER → 2021-10-14 13:53 | Outpatient (CLI) | payer MEDICAID, SELFPAY ==
[2021-10-14 13:46] LABS: Phencyclidine Screen,Urine Negative ng/ml (<25)
[2021-10-14 14:03] LABS: Amphetamine/Metha Screen,Urine Negative ng/ml (<1000)
[2021-10-14 14:04] LABS: Barbiturates Screen,Urine Negative ng/ml (<200); Cannabinoid Screen,Urine Negative ng/ml (<50)
[2021-10-14 14:05] LABS: Benzodiazepines Screen,Urine Negative ng/ml (<200)
[2021-10-14 14:06] LABS: Cocaine Screen,Urine Negative ng/ml (<300)
[2021-10-14 14:07] LABS: Methadone Screen,Urine Negative ng/ml (<300)
[2021-10-14 14:08] LABS: Opiate Screen,Urine Positive ng/ml (<300)
== END ==
PROVIDERS: PCP Family Medicine; Visit Provider Family Medicine
DX: Z79.899 Other long term (current) drug therapy (principal)
CPT/HCPCS: 80305

== ENCOUNTER → 2021-12-12 06:25 | Outpatient (CLI) | payer MEDICAID, SELFPAY ==
[2021-12-12 16:10] LABS: Chol/HDL Ratio 4.3 (1-3.5); Cholesterol 187 mg/dl (140-200); HDL Cholesterol 43 mg/dl (40-60); Triglycerides 266 mg/dl (30-150); VLDL Cholesterol 53 mg/dL (0-40)
[2021-12-12 16:42] LABS: Thyroid Stimulating Hormone 1.63 uIU/mL (0.465-4.68)
[2021-12-14 07:14] LABS: Direct LDL Cholesterol 92 mg/dL (100-129)
== END ==
PROVIDERS: PCP Family Medicine; Visit Provider Family Medicine
DX: E03.9 Hypothyroidism, unspecified (principal); Z79.899 Other long term (current) drug therapy
CPT/HCPCS: 80061; 84443

== ENCOUNTER → 2022-11-06 13:47 | Outpatient (CLI) | payer MEDICAID, SELFPAY ==
[2022-11-06 12:23] LABS: Amphetamine/Metha Screen,Urine Negative ng/ml (<1000); Barbiturates Screen,Urine Negative ng/ml (<200); Basophils # 0.1 K/mm3 (0-0.2); Basophils % 0.8 % (0.1-2.0); Eosinophils # 0.4 K/mm3 (0.0-0.4); Eosinophils % 4.5 % (0.1-12.0); Hematocrit 47.8 % (42.0-52.0); Lymphocytes % 23.4 % (10-50); Mean Corpuscular HGB Conc 33.5 g/dL (31.8-35.4); Mean Corpuscular Hemoglobin 30.4 pg (27.0-31.2); Mean Corpuscular Volume 90.7 fl (80-94); Mean Platelet Volume 8.9 fl (7.4-10.4); Monocytes # 0.4 K/mm3 (0.1-1.0); Neutrophils # 5.7 K/mm3 (1.8-7.8); Neutrophils % 66.4 % (37.0-80.0); Platelet Count 177 K/mm3 (142-424); Red Blood Count 5.27 M/mm3 (4.60-6.20); Red Cell Distribution Width 13.9 % (11.5-17.5); White Blood Count 8.6 K/mm3 (4.8-10.8)
[2022-11-06 12:24] LABS: Benzodiazepines Screen,Urine Negative ng/ml (<200); Cannabinoid Screen,Urine Negative ng/ml (<50)
[2022-11-06 12:25] LABS: Cocaine Screen,Urine Negative ng/ml (<300)
[2022-11-06 12:26] LABS: Methadone Screen,Urine Negative ng/ml (<300); Opiate Screen,Urine Negative ng/ml (<300)
[2022-11-06 12:27] LABS: Alanine Aminotransferase 28 U/L (12-78); Albumin Level 4.8 g/dl (3.5-5.0); Albumin/Globulin Ratio 1.5 (1.1-1.8); Alkaline Phosphatase 67 U/L (38-126); Anion Gap 16.3 mEq/L (5-15); Aspartate Amino Transferase 33 U/L (17-59); Bilirubin,Total 0.6 mg/dl (0.2-1.3); Blood Urea Nitrogen 14 mg/dl (9-20); Calcium 8.9 mg/dl (8.4-10.2); Carbon Dioxide 27 mmol/L (22.0-30.0); Chloride 104 mmol/L (98-107); Chol/HDL Ratio 4.2 (1-3.5); Cholesterol 190 mg/dl (140-200); Estimated Glomerular Filt Rate 69 ml/min (>60); GFR (African American) 84 ML/MIN (>60); Globulin 3.3 g/dL (1.3-3.2); Glucose 90 mg/dl (74-100); HDL Cholesterol 45 mg/dl (40-60); Phencyclidine Screen,Urine Negative ng/ml (<25); Potassium 4.3 mmoL/L (3.5-5.1); Sodium 143 mmol/L (136-145); Total Protein,Serum 8.1 g/dl (6.3-8.2); Triglycerides 241 mg/dl (30-150); VLDL Cholesterol 48 mg/dL (0-40)
[2022-11-06 12:38] LABS: Direct LDL Cholesterol 91.58 mg/dL (100-129)
[2022-11-06 12:42] LABS: Hemoglobin A1C 5.2 % (4.0-6.0)
[2022-11-06 12:43] LABS: 25-OH Vitamin D, Total 33.8 ng/mL (30-100)
[2022-11-06 12:44] LABS: Free T4 (Free Thyroxine) 1.35 ng/dl (0.78-2.19)
[2022-11-06 12:58] LABS: Prostate Specific Ag Screen 1.6 ng/ml (0.0-4.0); Thyroid Stimulating Hormone 1.72 uIU/mL (0.465-4.68)
== END ==
PROVIDERS: PCP Nurse Practitioner Family; Visit Provider Nurse Practitioner Family
DX: F41.9 Anxiety disorder, unspecified (principal); I10 Essential (primary) hypertension; E03.9 Hypothyroidism, unspecified; E66.3 Overweight; Z68.25 Body mass index [BMI] 25.0-25.9, adult; Z79.899 Other long term (current) drug therapy; Z12.5 Encounter for screening for malignant neoplasm of prostate
CPT/HCPCS: 80053; 80061; 80305; 82306; 83036; 84439; 84443; 85025; G0103

== ENCOUNTER 2023-02-19 11:47 | Emergency (ER) | payer MEDICAID, SELFPAY ==
[2023-02-19 11:49] VITALS: BP 147/106; PULSE 86; RESP 16; TEMP 36.6; O2SAT 96; BMI 26.6
--- NOTE | 2023-02-19 11:55 | PC.NURSE ---
Dr. Hanna at [facility] for pt eval
--- NOTE | 2023-02-19 11:57 | CT_ITS ---
FINAL REPORT CLINICAL HISTORY: fall, subacute inferior costal margin pain c/o left upper gastric pain for one month after a fall with his lower left abdomen hitting a table causing a bruise and hematoma in that area. 4 days of diarrhea. Pt states that he is concerned about his liver and spleen due to the area the pain is in. COMPARISON: 07/12/2019 FINDINGS: Thin section axial CT images of the chest were obtained with contrast. 3D reformatted images were also obtained. This study was performed with techniques to keep radiation doses as low as reasonably achievable (ALARA). Individualized dose reduction techniques using automated exposure control or adjustment of mA and/or kV according to the patient's size were employed. There is no evidence of pulmonary embolism. There is no evidence of thoracic aortic aneurysm or dissection. There is no evidence of mediastinal or hilar mass or adenopathy. There is no evidence of pulmonary mass or nodule. No localized inflammatory process is seen within the lungs. There is mild atelectasis. There is no pneumothorax. Limited images of the upper abdomen are unremarkable. IMPRESSION: No evidence of pulmonary embolism. Mild atelectasis. Reviewed, Interpreted and Dictated by Jason Sandhu III, MD Transcribed by Tanika Obando Authenticated and [facility]
--- NOTE | 2023-02-19 11:57 | CT_ITS ---
FINAL REPORT TECHNIQUE: Pre-and postcontrast images of the abdomen and pelvis were performed by computed tomography. Extensive 3-D reconstruction images were performed. A CTA was performed. This study was performed with techniques to keep radiation doses as low as reasonably achievable (ALARA). Individualized dose reduction techniques using automated exposure control or adjustment of mA and/or kV according to the patient''s size were employed. CLINICAL HISTORY: fall, subacute inferior costal margin pain FINDINGS: ABDOMEN/PELVIS: The lung bases are clear. Precontrast images demonstrate no evidence of nephrolithiasis. No adrenal masses are identified. The liver and spleen are unremarkable. The pancreas has a heterogeneous appearance which is felt to represent normal contrast mixing. The appendix is not identified. There is descending and sigmoid diverticulosis. Small inguinal hernias containing fat are identified. The osseous structures demonstrate bilateral L5 pars defects. CTA: The abdominal aorta is proper caliber. The SMA, celiac axis, and NOÉ are patent. There is no significant stenosis or calcification. The renal arteries are patent bilaterally. The iliac arteries are unremarkable. IMPRESSION: No evidence of renal vascular hypertension or significant renal artery stenosis. Reviewed, Interpreted and Dictated by Jason Sandhu III, MD Transcribed by Tanika Obando Authenticated and . [facility]
--- NOTE | 2023-02-19 12:02 | HMH.EDGENADL ---
Discharge Plan Disposition Patient Disposition: Home, Self-Care Chief Complaint: Abdominal Pain Prescriptions Prescriptions: No Action budesonide-formoterol 160-4.5 mcg/actuation HFA aerosol inhaler 2 puff INHALATION BID Qty: 10.2 10RF esomeprazole magnesium 20 mg tablet,delayed release (DR/EC) 20 mg PO DAILY Qty: 90 3RF coenzyme Q10 [CoQ-10] 100 mg capsule 100 mg PO DAILY Qty: 90 1RF meloxicam 15 mg tablet 15 mg PO DAILY Qty: 90 3RF lisinopril 20 mg tablet See Rx Instructions .ROUTE .COMPLEX Qty: 90 3RF Dose Instruction: TAKE 1 TABLET 1 TIME EACH DAY FOR BLOOD PRESSURE Rx Instructions: TAKE 1 TABLET 1 TIME EACH DAY FOR BLOOD PRESSURE clonazepam [Klonopin] 2 mg tablet 2 mg PO TID PRN (Reason: anxiety) Qty: 90 3RF loratadine 10 mg tablet 10 mg PO DAILY Qty: 90 0RF levothyroxine 50 mcg tablet See Rx Instructions .ROUTE .COMPLEX Qty: 90 3RF Dose Instruction: TAKE 1 TABLET 1 TIME EACH DAY FOR LOW THYROID Rx Instructions: TAKE 1 TABLET 1 TIME EACH DAY FOR LOW THYROID esomeprazole magnesium 20 mg capsule,delayed release(DR/EC) See Rx Instructions .ROUTE .COMPLEX Qty: 90 3RF Dose Instruction: TAKE 1 CAPSULE 1 TIME EACH DAY FOR REFLUX Rx Instructions: TAKE 1 CAPSULE 1 TIME EACH DAY FOR REFLUX pravastatin 40 mg tablet See Rx Instructions .ROUTE .COMPLEX Qty: 90 2RF Dose Instruction: TAKE 1 TABLET 1 TIME EACH DAY AT BEDTIME FOR HIGH CHOLESTEROL Rx Instructions: TAKE 1 TABLET 1 TIME EACH DAY AT BEDTIME FOR HIGH CHOLESTEROL Referrals Follow up/Referrals: Marcial Hugo MD [Primary Care Provider] - See instructions Activity Restrictions/Add. Instructions Additional Instructions/Restrictions: At this time it was felt you are safe to be discharged home. If new or worsening symptoms please do not hesitate to return the emergency department. If symptoms persist please follow-up with your family doctor as you are able as discussed. Clinical Impressions Clinical Impression: Abdominal pain Instructions Patient Instructions: DI for Acute Abdominal Pain Discharge ED Provider: Fercho Hanna General Adult HPI General Chief complaint: Abdominal Pain Stated complaint: upper adm and side pain Time Seen by Provider: 02/19/23 11:53 Mode of Arrival: Ambulatory Source of Information: Patient Limitations: No Limitations Description of Symptoms (Recalled from ER Triage Doc. by RN): c/o left upper gastric pain for one month after a fall with his lower left abdomen hitting a table causing a bruise and hematoma in that area. 4 days of diarrhea. Pt states that he is concerned about his liver and spleen due to the area the pain is in. History of Present Illness HPI narrative: Patient is a 57-year-old male who presents emergency department for evaluation of subacute pain sustained from a fall. Patient suffered a ground-level mechanical fall onto a TV table in his epigastric region approximately 4 weeks ago. He has had intermittent pain along his inferior costal margin and left upper quadrant. However this morning patient experienced 10 out of 10 pain in the same location caused him to be concerned and present here for continued evaluation. He is currently pending outpatient CT evaluation which has yet to be conducted. Patient is still stooling, no blood in his urine or stool. Denies striking his head or blood thinners. No other acute complaints at this time. Related Data Previous Rx's Medication Instructions Recorded loratadine 10 mg tablet 10 mg PO DAILY allergies #90 tabs 03/25/21 budesonide-formoterol HFA 160 2 puff inhalation BID Breathing 05/14/21 mcg-4.5 mcg/actuation aerosol problems #10.2 grams inhaler esomeprazole magnesium 20 mg 20 mg PO DAILY GERD #90 tabs 05/14/21 tablet,delayed release esomeprazole magnesium 20 mg See Rx Instructions .Route 06/02/22 capsule,delayed release .COMPLEX #90 caps levothyroxine 50 mcg tab
[2023-02-19 12:11] VITALS: BP 138/87; PULSE 89; RESP 16; O2SAT 95
[2023-02-19 12:19] LABS: Basophils % 0.4 % (0.1-2.0); Eosinophils # 0.3 K/mm3 (0.0-0.4); Eosinophils % 3.6 % (0.1-12.0); Hematocrit 46.7 % (42.0-52.0); Hemoglobin 16.7 g/dL (14.1-18.0); Lymphocytes # 1.5 K/mm3 (0.7-4.5); Lymphocytes % 21.2 % (10-50); Mean Corpuscular HGB Conc 35.8 g/dL (31.8-35.4); Mean Corpuscular Hemoglobin 31.9 pg (27.0-31.2); Mean Corpuscular Volume 89.2 fl (80-94); Mean Platelet Volume 8.3 fl (7.4-10.4); Monocytes # 0.5 K/mm3 (0.1-1.0); Monocytes % 7.6 % (1.7-9.3); Neutrophils # 4.6 K/mm3 (1.8-7.8); Neutrophils % 67.2 % (37.0-80.0); Platelet Count 127 K/mm3 (142-424); Red Blood Count 5.24 M/mm3 (4.60-6.20); Red Cell Distribution Width 14.1 % (11.5-17.5); White Blood Count 6.9 K/mm3 (4.8-10.8)
[2023-02-19 12:28] LABS: Alanine Aminotransferase 57 U/L (12-78); Albumin Level 4.5 g/dl (3.5-5.0); Albumin/Globulin Ratio 1.1 (1.1-1.8); Alkaline Phosphatase 57 U/L (38-126); Anion Gap 14.5 mEq/L (5-15); Aspartate Amino Transferase 75 U/L (17-59); Bilirubin,Total 0.9 mg/dl (0.2-1.3); Blood Urea Nitrogen 10 mg/dl (9-20); Calcium 8.6 mg/dl (8.4-10.2); Carbon Dioxide 23 mmol/L (22.0-30.0); Chloride 105 mmol/L (98-107); Creatinine Clearance Estimated 97 mL/min (50-200); Estimated Glomerular Filt Rate 87 ml/min (>60); GFR (African American) 106 ML/MIN (>60); Globulin 4.2 g/dL (1.3-3.2); Glucose 99 mg/dl (74-100); Lipase 93 U/L (23-300); Potassium 4.5 mmoL/L (3.5-5.1); Sodium 138 mmol/L (136-145); Total Protein,Serum 8.7 g/dl (6.3-8.2)
[2023-02-19 12:30] VITALS: BP 132/76; PULSE 66; O2SAT 95
--- NOTE | 2023-02-19 12:31 | PC.NURSE ---
Pt gone to RAD
--- NOTE | 2023-02-19 12:48 | PC.NURSE ---
pt return from CT, given ice chips-okayed per ER
[2023-02-19 13:01] VITALS: BP 120/59; PULSE 72; O2SAT 96
[2023-02-19 13:30] VITALS: BP 124/72; PULSE 62; O2SAT 97
--- NOTE | 2023-02-19 13:40 | PC.NURSE ---
Rounded on pt. No needs voiced at this time. Call light within reach.
--- NOTE | 2023-02-19 14:14 | PC.NURSE ---
Dr. Hanna at BS to update pt on results and POC
[2023-02-19 14:24] VITALS: BP 124/72; PULSE 62; RESP 18; TEMP 36.6; O2SAT 97
== END 2023-02-19 14:25 | disposition home or self-care (01) ==
PROVIDERS: Emergency Provider Emergency Medicine; PCP Family Medicine
DX: R10.9 Unspecified abdominal pain (principal)
CPT/HCPCS: 71275; 74174; 80053; 83690; 85025; 96374; 96375; 99284; J0131; Q9967

== ENCOUNTER 2023-04-04 15:50 | Emergency (ER) | payer MEDICAID, SELFPAY ==
[2023-04-04 16:20] VITALS: BP 0/0; PULSE 0; RESP 0; TEMP -17.7; TEMP 0
== END 2023-04-04 16:21 | disposition left against medical advice (07) ==
LOC: UTC 15:54
PROVIDERS: Emergency Provider Nurse Practitioner; PCP Family Medicine
DX: Z53.21 Procedure and treatment not carried out due to patient leaving prior to being seen by health care provider (principal)

== ENCOUNTER 2024-04-20 10:40 | Outpatient (CLI) | payer MEDICAID, SELFPAY ==
[2024-04-20 19:50] LABS: Thyroid Stimulating Hormone 3.74 uIU/mL (0.465-4.68)
[2024-04-20 20:57] LABS: HIV (1&2) Antibody Rapid NONREACTIVE (NONREACTIVE)
[2024-04-22 06:11] LABS: HCV Ab Non Reactive (Non Reactive)
== END 2024-04-20 23:59 | disposition home or self-care (01) ==
LOC: LAB.DROPOF 04-21 09:00
PROVIDERS: PCP Family Medicine; Visit Provider Family Medicine
DX: I10 Essential (primary) hypertension (principal); Z11.59 Encounter for screening for other viral diseases; Z11.4 Encounter for screening for human immunodeficiency virus [HIV]
CPT/HCPCS: 84443; 86803; 87389

== ENCOUNTER 2025-03-29 07:46 | Day surgery (SDC) | payer MEDICAID, SELFPAY ==
--- NOTE | 2025-03-24 10:46 | EXP.HP ---
History of Present Illness *Admission Date: 03/29/25 *History of present illness: Mr. Mcclain is a 59-year-old gentleman who is here for diagnostic EGD. The patient recently presented to the ED (on 01/20/2025) at [facility] with complaints of midsternal chest pain and possible food bolus after eating chicken and rice and felt as if food was getting hung up. The examination is deemed medically necessary for diagnostic EGD. The patient has been seen, interviewed and examined prior to the procedure by both myself and the anesthesia provider. [facility] Disclaimer: The information contained in this section may have been updated after the patient was seen, as this information can be updated by other users. Medical History Primary hypertension Degenerative joint disease (DJD) of lumbar spine Lumbar radiculopathy Bilateral sacroiliitis Onychomycosis Onychodystrophy Acquired hypothyroidism Anxiety Surgical History Hx of appendectomy Normal esophagogastroduodenoscopy (EGD) Colonoscopy planned Family History Other No significant family history Social History (Updated 03/29/25 @ 08:58 by Neva Barrow RN) Smoking Status: Never smoker second hand exposure: No alcohol intake: never substance use type: denies use current occupational status: disabled Travel in the last 8 weeks?: None household members: significant other housing: house number of children: 2 current occupational exposures/hazards: No caffeine: Yes Have you lived/traveled outside [place] in past 30 days?: No Contact w/someone who lives/traveled outside US past 30 days?: No Exposure to someone with infectious disease in past 14 days?: No Do you have a fever (greater than 100.4 F or 38 C)?: No Have you tested positive for COVID-19?: No Exposed to someone with COVID-19 in past 14 days?: No Do you have a sore throat?: No Do you have a cough?: No Do you have any weakness?: No Are you experiencing any nausea/vomitting?: No Do you have any diarrhea?: No Are you experiencing any unusual bleeding?: No Do you have any muscle aches/pain?: No Do you have any abdominal pain?: No Are you experiencing loss of taste or smell?: No Other Medical History Have you received the Flu Vaccine for this season: Yes Have you received the Pneumonia Vaccine: No Review of Systems Review of Systems Review of systems (narrative): Negative *Cardiovascular Comments: Negative *Gastrointestinal Comments: Negative *Genitourinary Comments: Negative *Musculoskeletal Comments: Negative *Neurologic Comments: Negative Meds Home Medications and Allergies Home Medications ?Medication ?Instructions ?Recorded ?Confirmed ?Type clobetasol 0.05 % topical cream 1 applic topical BID #60 grams 11/27/23 03/29/25 Rx pantoprazole 40 mg tablet,delayed 40 mg PO DAILY #90 tabs 02/22/24 03/29/25 Rx release (Protonix) loratadine 10 mg tablet 10 mg PO DAILY allergies #90 tabs 09/13/24 03/29/25 Rx clonazepam 2 mg tablet (Klonopin) 2 mg PO TID PRN anxiety #90 tabs 02/10/25 03/29/25 Rx lisinopril 40 mg tablet 40 mg PO DAILY #90 tabs 02/10/25 03/29/25 Rx pravastatin 40 mg tablet See Rx Instructions .Route 02/10/25 03/29/25 Rx .COMPLEX #90 tabs levothyroxine 50 mcg tablet 50 mcg PO DAILY 03/28/25 03/29/25 History budesonide-formoterol HFA 160 2 puff inhalation BID Breathing 03/29/25 03/29/25 History mcg-4.5 mcg/actuation aerosol problems inhaler (Symbicort) New Prescriptions to Start Prescriptions: Allergies Allergy/AdvReac Type Severity Reaction Status Date / Time amoxicillin Allergy Intermediate Vomiting Verified 03/29/25 08:47 shrimp Allergy Swelling Verified 03/29/25 08:47 of Lip/Tongue/Throat buspirone AdvReac Blurry Verified 03/29/25 08:47 Vision Exam *Routine HEENT Exam Head: Present normocephalic Eye: Present EOMI and PERRL ENT: Present mucous membranes moist *Routine Neck Exam Neck: Present supple *Routine Respiratory Exam Respiratory: Present CTA bilaterally *Routine Cardiovascular Exam Cardiovascular: Present RRR *Routine Abdominal Exam Abdominal: Present soft and normoactive bowel sounds; Absent tenderness *Routine Rectal Exam Rectal:: deferred *Routine Genitalia Exam Genitalia:: deferred *Routine Extremities Exam Extremities: Absent cyanosis, clubbing or edema *Routine Skin Exam Skin: Present warm; Absent rash *Routine Neurological Exam Neurological: Present alert and oriented X3 Assessment and Plan *Assessment and plan (1) Dysphagia: Status: Acute Category: Medical Code(s): R13.10 - Dysphagia, unspecified (2) Food impaction of esophagus: Status: Acute Category: Medical Code(s): T18.128A - Food in esophagus causing other injury, initial encounter; [id number].[id number] - Food entering into or through a natural orifice, initial encounter Plan A/P: 1. Dysphagia with recent esophageal food impaction is the preprocedural diagnosis. The patient will be anesthetized/sedated using MAC sedation. The patient has been seen and examined. Cardiac and lung assessment prior to the examination is stable. Proceed with planned diagnostic EGD.
[2025-03-28 11:19] VITALS: BMI 25.8
--- NOTE | 2025-03-29 06:51 | HMH.PROCNOTE ---
[facility] Procedure Note Date: 03/29/25 Time: 09:32 Procedure Note:: Upper Endoscopy Procedure Report: Esophagogastroduodenoscopy with cold biopsies and TTS balloon dilation Endoscopost: Rafael Arias II, MD Referring Physician: Azam Hugo MD Date of Procedure: March 29, 2025 Equipment: Olympus GIF-1100 standard upper endoscope Sedation: MAC sedation Indications: Mr. Mcclain is a 59-year-old gentleman who is here for diagnostic EGD. The patient recently presented to the ED (on 01/20/2025) at [facility] with complaints of midsternal chest pain and possible food bolus after eating chicken and rice and felt as if food was getting hung up. This has happened multiple times over the years but this was the worst episode. Normally he is able to drink something carbonated and the food bolus will either go up or down. The patient does report a long history of heartburn and reflux. He was originally on Zantac but now is on Protonix. He did have an EGD more than 10 years ago. He also reports some bloating, gassiness, belching and dyspepsia. He reports some fullness and early satiety. He also has some frequent diarrhea. He does state that if he eats spicy foods in the evening he will have more significant GERD. The examination is deemed medically necessary for diagnostic EGD. Procedure: Prior to the procedure, a history and physical exam was performed, and patient's medications and allergies were reviewed. The risks, benefits and alternatives of the sedation and procedure were discussed with the patient. All questions were answered and informed consent was obtained. The patient was brought to the procedure room. Patient identification and proposed procedure were verified by the physician and the nurse. The patient was placed in a left lateral decubitus position and the scope was passed under direct vision. Throughout the procedure, the patient's blood pressure, pulse, and oxygen saturations were monitored continuously. The upper GI endoscopy was accomplished without difficulty. The patient tolerated the procedure well. Findings: The scope was passed directly into the upper esophagus and advanced to the third portion of the duodenum. The post bulbar duodenum, ampulla and duodenal bulb were normal with normal mucosa and conniventes. 2 cold biopsies were taken from the second portion of the duodenum for the disaccharidase assay. The scope was withdrawn through a normal duodenal bulb and pylorus into the stomach. There was some bile reflux with mild linear reactive gastropathy of the antrum. The body and fundus of the stomach were normal. Upon retroflexion there was a very small sliding 1 to 2 cm hiatal hernia. Cold biopsies were taken from the antrum. The scope was then withdrawn into the esophagus. There was a distal esophageal ring/Schatzki's ring. There was also 2 islands of salmon-colored mucosa distally and this was biopsied to rule out intestinal metaplasia/short segment Cat's esophagus. This Schatzki's ring was originally 12 to 13 mm in diameter and this was dilated up to 20 mm with a TTS hydrostatic balloon with shattering of the Schatzki's ring. There was no evidence of reflux esophagitis and the remainder of the esophageal mucosa was normal. Impression: 1. Schatzki's ring dilated to 20 mm (from original diameter 12 to 13 mm) 2. Nonerosive GERD with very small 1 to 2 cm hiatal hernia and biopsies taken to rule out intestinal metaplasia/short segment Cat's 3. Bile reflux with mild linear reactive gastropathy Plan: I will follow-up the biopsies and discuss the findings with the patient and family. I will follow-up the disaccharidase assay.
[2025-03-29 08:48] VITALS: BP 168/99; PULSE 77; RESP 18; TEMP 36.5; O2SAT 97
[2025-03-29] MEDS: LACTATED RINGERS 1000ML 1,000 ML 50 ML IV (08:59)
--- NOTE | 2025-03-29 09:11 | P.PNANES_ITS ---
[facility] Disclaimer: The information contained in this section may have been updated after the patient was seen, as this information can be updated by other users. Medical History Primary hypertension Degenerative joint disease (DJD) of lumbar spine Lumbar radiculopathy Bilateral sacroiliitis Onychomycosis Onychodystrophy Acquired hypothyroidism Anxiety Surgical History Hx of appendectomy Normal esophagogastroduodenoscopy (EGD) Colonoscopy planned Family History Other No significant family history Social History (Updated 03/29/25 @ 08:58 by Neva Barrow RN) Smoking Status: Never smoker second hand exposure: No alcohol intake: never substance use type: denies use current occupational status: disabled Travel in the last 8 weeks?: None household members: significant other housing: house number of children: 2 current occupational exposures/hazards: No caffeine: Yes Have you lived/traveled outside [place] in past 30 days?: No Contact w/someone who lives/traveled outside [place] past 30 days?: No Exposure to someone with infectious disease in past 14 days?: No Do you have a fever (greater than 100.4 F or 38 C)?: No Have you tested positive for COVID-19?: No Exposed to someone with COVID-19 in past 14 days?: No Do you have a sore throat?: No Do you have a cough?: No Do you have any weakness?: No Are you experiencing any nausea/vomitting?: No Do you have any diarrhea?: No Are you experiencing any unusual bleeding?: No Do you have any muscle aches/pain?: No Do you have any abdominal pain?: No Are you experiencing loss of taste or smell?: No [facility] Anesthesia Checklist Patient Identification Patient Identification: Arm Band Structural Data Admitted From: Home Planned Operative Procedure/s: EGD Consent for Planned Operative Procedure(s) Verified: Yes Verified Documents: Surgical Consent and History and Physical NPO Status Verified Time NPO: 00:00 Additional verifications Anesthesia Reactions: No Hx Blood Transfusions: No Blood Transfusion Reaction: No Airway Assessment Mallampati Score:: Class II C-Spine Mobility Assessed: Yes TMJ Mobility Assessed: Yes Dentition: Good Dentition Neurological Assessment Level of Consciousness: Awake, Alert and Appropriate Anesthesia Plan Anesthesia Risk discussed: Yes Anesthesia Plan: Verified ASA Class: II Anesthesia Type: MAC
[2025-03-29 09:32] VITALS: BP 109/73; PULSE 75; RESP 18; O2SAT 93
[2025-03-29 09:42] VITALS: BP 138/71; PULSE 70; RESP 18; O2SAT 94
[2025-03-29 09:52] VITALS: BP 116/70; PULSE 66; RESP 18; O2SAT 96
[2025-03-29 10:30] VITALS: BP 126/68; PULSE 70; RESP 18; O2SAT 97
[2025-04-03 16:32] LABS: Interpretation Notes (.); Lactase 18.53 (>/= 14.0); Maltase 203.63 (>/= 110.0); Palatinase 15.4 (>/= 8.5); Reference Notes (.); Sucrase 63.17 (>/= 25.0)
== END 2025-03-29 10:30 | disposition home or self-care (01) ==
PROVIDERS: PCP Family Medicine; Visit Provider Internal Medicine Gastroenterology
PROC: 0DJ08ZZ Inspection of Upper Intestinal Tract, Via Natural or Artificial Opening Endoscopic (ICD-10-PCS; CPT 43239; principal; 2025-03-29 09:30)
DX: R13.10 Dysphagia, unspecified (principal); T18.128A Food in esophagus causing other injury, initial encounter; E03.9 Hypothyroidism, unspecified; F41.9 Anxiety disorder, unspecified; M47.26 Other spondylosis with radiculopathy, lumbar region; I10 Essential (primary) hypertension; Z88.1 Allergy status to other antibiotic agents; Z88.8 Allergy status to other drugs, medicaments and biological substances; Z91.013 Allergy to seafood; Z79.899 Other long term (current) drug therapy; Z79.890 Hormone replacement therapy; W44.F3XA Food entering into or through a natural orifice, initial encounter
CPT/HCPCS: 43239; 43249; 82657; C1726; J2003; J2704; J7120